=== PATIENT | female | born 1985 | race Caucasian/White ===

== ENCOUNTER 2019-04-03 00:56 | Emergency (ER) | payer OTHER ==
[~2019-04-03] VITALS: Ht 154.9 cm; Wt 59.0 kg
[2019-04-03 00:56] VITALS: BP 131/81
--- NOTE | 2019-04-03 00:56 | NUR ---
PT YSABEL ALS. TAKEN TO BED 8
--- NOTE | 2019-04-03 01:00 | NUR ---
PT HAS AN IV ON LEFT AC AND WAS GIVEN ADENOSINE AND 350 BOLUS PRIOR TO ER BY EMS. ERMD MADE AWARE OF STATUS.
--- NOTE | 2019-04-03 01:05 | NUR ---
Dr. Galaviz examining patient.
--- NOTE | 2019-04-03 01:23 | NUR ---
PT AMBULATING TO RESTROOM
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
--- NOTE | 2019-04-03 01:39 | NUR ---
EKG PERFORMED AT BEDSIDE
[2019-04-03 01:42] LABS: BASOPHILS % (AUTO) 0.2 % (0.0-2.0); EOSINOPHILS % (AUTO) 0.2 % (0.0-4.0); HEMATOCRIT 38.9 % (36-48); HEMOGLOBIN 13.2 g/dL (12.0-16.0); LYMPHOCYTES # (AUTO) 2.8 K/uL (2.5-16.5); LYMPHOCYTES % (AUTO) 21.2 % (20.5-51.1); MEAN CORPUSCULAR HEMOGLOBIN 32 pg (27-31); MEAN CORPUSCULAR HGB CONC 34 g/dL (33-37); MEAN CORPUSCULAR VOLUME 92.8 fL (80-94); MONOCYTES # (AUTO) 0.7 K/uL (0.8-1.0); MONOCYTES % (AUTO) 5.5 % (1.7-9.3); NEUTROPHILS # (AUTO) 9.5 K/uL (1.8-7.7); NEUTROPHILS % (AUTO) 72.9 % (42.2-75.2); PLATELET COUNT (AUTO) 451 K/uL (140-450); RED CELL DISTRIBUTION WIDTH 12.4 % (11.6-13.7)
[2019-04-03] MEDS: LORazepam 2 MG/ML VIAL IVP ONE (01:44)
[2019-04-03] MEDS: KETOROLAC 15 MG/ML VIAL IVP ONE (01:45)
[2019-04-03] MEDS: NACL 0.9% 1,000 ML IV ONE (01:47)
[2019-04-03 01:58] LABS: BARBITURATE, URINE NEGATIVE ng/ml (NEG <=200); BENZODIAZEPINE, URINE NEGATIVE ng/mL (NEG <=200); CANNABINOID, URINE NEGATIVE ng/mL (NEG <=50); COCAINE, URINE NEGATIVE ng/mL (NEG <=300); OPIATE, URINE NEGATIVE ng/mL (NEG <=2000); PHENCYCLIDINE SCREEN,URINE NEGATIVE ng/mL (NEG <=25)
[2019-04-03 02:01] LABS: ANION GAP 17.7 (8-16); CARBON DIOXIDE 24.3 mmol/L (21-32); CHLORIDE 100 mmol/L (98-107); SODIUM SERUM 139 mmol/L (136-145)
[2019-04-03 02:02] LABS: ASPARTATE AMINOTRANSFERASE 62 U/L (15-37); CREATININE 0.8 mg/dL (0.6-1.3); GFR ARICAN-AMERICAN 107 mL/min (>90); GLUCOSE 134 mg/dL (74-106); TOTAL BILIRUBIN 0.2 mg/dL (0.0-1.0); UREA NITROGEN, BLOOD 7 mg/dL (7-18)
[2019-04-03 02:03] LABS: ACETAMINOPHEN < 0.5 ug/ml (10-30); ALBUMIN 4.1 g/dL (3.4-5.0); SALICYLATE < 2.8 mg/dL (2.8-20.0)
[2019-04-03] MEDS: POTASSIUM CHLORIDE 10 MEQ TABER PO ONE (03:17)
[2019-04-03 03:44] VITALS: BP 146/105
--- NOTE | 2019-04-03 03:44 | NUR ---
Patient discharged with v/s stable. Written and verbal after care instructions given and explained. Patient verbalized understanding. Ambulatory with steady gait. All questions addressed prior to discharge. Advised to follow up with PMD.
== END 2019-04-03 03:44 | disposition home or self-care (01) ==
LOC: MED 00:56
DX: F10.129 Alcohol abuse with intoxication, unspecified (principal); R00.0 Tachycardia, unspecified; I10 Essential (primary) hypertension; F41.9 Anxiety disorder, unspecified; F17.200 Nicotine dependence, unspecified, uncomplicated; F15.90 Other stimulant use, unspecified, uncomplicated; Z98.890 Other specified postprocedural states; Z71.6 Tobacco abuse counseling; Y04.2XXA Assault by strike against or bumped into by another person, initial encounter; Y93.89 Activity, other specified; Y92.89 Other specified places as the place of occurrence of the external cause; Y99.8 Other external cause status
CPT/HCPCS: 36415; 80053; 80305; 84439; 84443; 85025; 93005; 96374; 96375; 99284; G0480; G0482; J1885; J2060; J7030

== ENCOUNTER 2019-04-06 18:48 | Emergency (ER) | payer OTHER ==
[~2019-04-06] VITALS: Ht 177.8 cm; Wt 59.9 kg
[2019-04-06 19:05] VITALS: BP 150/71
--- NOTE | 2019-04-06 19:10 | NUR ---
PT TO WAIT IN [facility]. [id number]. RR EVEN AND UNLABORED. BP 150/71, WILL CONTINE TO MONITOR. Addendum: 04/06/19 at 1911 by [email or web address] TACHY AT 132
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
[2019-04-06 20:49] LABS: BASOPHILS % (AUTO) 0.2 % (0.0-2.0); EOSINOPHILS % (AUTO) 0.1 % (0.0-4.0); HEMATOCRIT 40.3 % (36-48); HEMOGLOBIN 13.7 g/dL (12.0-16.0); LYMPHOCYTES # (AUTO) 3.3 K/uL (2.5-16.5); LYMPHOCYTES % (AUTO) 16.3 % (20.5-51.1); MEAN CORPUSCULAR HEMOGLOBIN 31 pg (27-31); MEAN CORPUSCULAR HGB CONC 34 g/dL (33-37); MEAN CORPUSCULAR VOLUME 91.4 fL (80-94); MONOCYTES # (AUTO) 0.7 K/uL (0.8-1.0); MONOCYTES % (AUTO) 3.6 % (1.7-9.3); NEUTROPHILS # (AUTO) 16.3 K/uL (1.8-7.7); NEUTROPHILS % (AUTO) 79.8 % (42.2-75.2); PLATELET COUNT (AUTO) 498 K/uL (140-450); RED BLOOD CELL COUNT(AUTO) 4.41 MIL/uL (4.20-5.40); RED CELL DISTRIBUTION WIDTH 12.8 % (11.6-13.7); WHITE BLOOD COUNT (AUTO) 20.4 K/uL (4.8-10.8)
[2019-04-06 21:15] LABS: POTASSIUM 3.6 mmol/L (3.5-5.1)
[2019-04-06 21:16] LABS: ANION GAP 17.8 (8-16); CARBON DIOXIDE 23.8 mmol/L (21-32); TOTAL BILIRUBIN 0.7 mg/dL (0.0-1.0)
[2019-04-06 21:17] LABS: ALBUMIN 4.5 g/dL (3.4-5.0)
== END 2019-04-06 20:00 | disposition left against medical advice (07) ==
LOC: MED 18:48
DX: R06.02 Shortness of breath (principal); R42 Dizziness and giddiness; Z53.21 Procedure and treatment not carried out due to patient leaving prior to being seen by health care provider
CPT/HCPCS: 36415; 80053; 84484; 84702; 85025

== ENCOUNTER 2019-04-06 20:04 | Emergency (ER) | payer OTHER ==
[~2019-04-06] VITALS: Ht 154.9 cm; Wt 56.7 kg
[2019-04-06 20:08] VITALS: BP 134/108
--- NOTE | 2019-04-06 20:09 | NUR ---
PT ABULATED TO LOBBY
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
--- NOTE | 2019-04-06 21:00 | NUR ---
YSABEL FROM [employer] C/O ANXIETY. STATED "I FELT ANXIOUS, LITTLE SOB AND ABOUT TO FAINT". PT ALSO C/O DIZZINESS/HEADACHE 5/10, NO BLURRY VISION, -N/V, C/O FEELING NUMBNESS/TINGLING TO EXTREMETIES, PT STATES SHE WALKED IN EARLIER TODAY FOR SIMILAR S/SX BUT LWBS. PT AAOX4, GCS 15, RR EVEN UNLABORED, ED MD DR. RENNER MADE AWARE, WILL CONTINUE TO MONITOR CLOSELY, BED LOCKED IN LOWEST POSITION, SIDERAIL UPX1. PMH-- ANXIETY, DEPRESSION, CHF POST (RESOLVED) RX-- FLUOXETINE 50 MG DAILY
--- NOTE | 2019-04-06 21:08 | NUR ---
AMBULATED TO ER BED 8
[2019-04-06] MEDS ORDERED: NACL 0.9% 1,000 ML IV ONE (21:20)
[2019-04-06 22:43] LABS: APPEARANCE,URINE CLEAR (CLEAR); BILIRUBIN,URINE NEGATIVE (NEGATIVE); BLOOD, URINE NEGATIVE (NEGATIVE); COLOR,URINE YELLOW (YELLOW); LEUKOCYTE ESTERASE ,URINE NEGATIVE (NEGATIVE); NITRITE, URINE NEGATIVE (NEGATIVE); UGLUCOSE NEGATIVE (NEGATIVE)
[2019-04-06 23:35] VITALS: BP 156/78
--- NOTE | 2019-04-06 23:35 | NUR ---
Patient discharged with v/s stable. Written and verbal after care instructions given and explained. Patient alert, oriented and verbalized understanding of instructions. Ambulatory with steady gait. All questions addressed prior to discharge. ID band removed. Patient advised to follow up with PMD. Rx of METOPROLOL SUCCINATE 25MG ER given. Patient educated on indication of medication including possible reaction and side effects. Opportunity to ask questions provided and answered.
== END 2019-04-06 23:35 | disposition home or self-care (01) ==
LOC: MED 20:04
DX: D72.829 Elevated white blood cell count, unspecified (principal); R00.0 Tachycardia, unspecified; Z79.899 Other long term (current) drug therapy; F32.9 Major depressive disorder, single episode, unspecified; Z98.51 Tubal ligation status; I10 Essential (primary) hypertension
CPT/HCPCS: 71045; 81003; 81025; 93005; 96360; 99284; J7030; Q0092

== ENCOUNTER 2020-07-06 18:01 | Emergency (ER) | payer OTHER ==
[~2020-07-06] VITALS: Ht 154.9 cm; Wt 56.7 kg
--- NOTE | 2020-07-06 18:05 | NUR ---
PT AMBULATED TO BED 4.
[2020-07-06 18:14] VITALS: BP 126/86
--- NOTE | 2020-07-06 18:15 | NUR ---
35 Y/O FEMALE COMES FROM HOME PRESENTS TO ED C/C DIZZYNESS, AND ANXIETY SINCE 2 HRS AGO. PT STATES SHE IS COMPLIANT WITH ANXIETY AND DEPRESSION MEDS. DENIES SOB, N/V/D. DENIES SI/HI. PMHX: ANXIETY, DEPRESSION, HTN NKDA
[2020-07-06] MEDS ORDERED: LORazepam 1 MG TAB PO ONE (18:45)
[2020-07-06 19:10] VITALS: BP 126/86
== END 2020-07-06 19:10 | disposition home or self-care (01) ==
LOC: MED 18:01
DX: F41.0 Panic disorder [episodic paroxysmal anxiety] (principal)
CPT/HCPCS: 93005; 99283

== ENCOUNTER 2020-07-09 07:15 | Emergency (ER) | payer OTHER ==
[~2020-07-09] VITALS: Ht 154.9 cm; Wt 52.2 kg
[2020-07-09 07:20] VITALS: BP 140/94
--- NOTE | 2020-07-09 07:20 | NUR ---
Patient ambulated with steady gait to bed 4.
[2020-07-09] MEDS ORDERED: FAMOTIDINE 20 MG TAB PO ONE (07:35)
[2020-07-09] MEDS ORDERED: ONDANSETRON 4 MG ODT PO ONE (07:35)
--- NOTE | 2020-07-09 08:02 | NUR ---
35YO F BIB SELF C/O NAUSEA X 2 DAYS AND MID ABDOMINAL PAIN SINCE THIS AM, PAIN SCALE 3/10. PT ALSO REPORTS 1 EPISODE OF LOOSE WATERY STOOLS THIS AM. PT ADMITS TO ALCOHOL INTAKE FOR THE PAST DAYS, 3 CANS OF BEER THIS AM. IN ER, VSS. ABDOMEN SOFT, NONTENDER.NO SIGNS OF DEHYDRATION. PT CHANGED TO PT GOWN. RESTING IN BED COMFORTABLY. DR SKINNER SAW PT AT BEDSIDE. PMH: HTN, ANXIETY, DEPRESSION NKA
[2020-07-09 08:12] LABS: BASOPHILS % (AUTO) 0.1 % (0.0-2.0); EOSINOPHILS # (AUTO) 0.1 K/uL (0-0.4); HEMATOCRIT 39.7 % (36-48); HEMOGLOBIN 13.3 g/dL (12.0-16.0); LYMPHOCYTES # (AUTO) 3.1 K/uL (2.5-16.5); LYMPHOCYTES % (AUTO) 39.5 % (20.5-51.1); MEAN CORPUSCULAR HEMOGLOBIN 30 pg (27-31); MEAN CORPUSCULAR HGB CONC 34 g/dL (33-37); MEAN CORPUSCULAR VOLUME 89.9 fL (80-94); MONOCYTES # (AUTO) 0.6 K/uL (0.8-1.0); MONOCYTES % (AUTO) 8.1 % (1.7-9.3); NEUTROPHILS # (AUTO) 4.1 K/uL (1.8-7.7); NEUTROPHILS % (AUTO) 51.3 % (42.2-75.2); PLATELET COUNT (AUTO) 369 K/uL (140-450); RED BLOOD CELL COUNT(AUTO) 4.41 MIL/uL (4.20-5.40); WHITE BLOOD COUNT (AUTO) 7.9 K/uL (4.8-10.8)
[2020-07-09] MEDS ORDERED: LORazepam 1 MG TAB PO ONE (08:15)
[2020-07-09 08:25] LABS: BILIRUBIN,URINE NEGATIVE (NEGATIVE); BLOOD, URINE NEGATIVE (NEGATIVE); COLOR,URINE YELLOW (YELLOW); LEUKOCYTE ESTERASE ,URINE 1+ (NEGATIVE); NITRITE, URINE NEGATIVE (NEGATIVE); PH,URINE 6.5 (5.0-9.0); UGLUCOSE NEGATIVE (NEGATIVE)
[2020-07-09 08:35] LABS: APPEARANCE,URINE SLIGHTLY HAZY (CLEAR)
[2020-07-09 08:36] LABS: RBC,URINE NONE SEEN /HPF (0-5)
[2020-07-09 08:37] LABS: ALBUMIN 4.3 g/dL (3.4-5.0); ANION GAP 13.6 (8-16); CARBON DIOXIDE 29.2 mmol/L (21-32); CREATININE 0.7 mg/dL (0.6-1.3); POTASSIUM 3.8 mmol/L (3.5-5.1); TOTAL BILIRUBIN 0.3 mg/dL (0.0-1.0)
[2020-07-09 08:43] LABS: BARBITURATE, URINE NEGATIVE ng/ml (NEG <=200); BENZODIAZEPINE, URINE POSITIVE ng/mL (NEG <=200); CANNABINOID, URINE NEGATIVE ng/mL (NEG <=50); COCAINE, URINE NEGATIVE ng/mL (NEG <=300); OPIATE, URINE NEGATIVE ng/mL (NEG <=2000); PHENCYCLIDINE SCREEN,URINE NEGATIVE ng/mL (NEG <=25)
[2020-07-09 09:52] VITALS: BP 140/94
--- NOTE | 2020-07-09 09:52 | NUR ---
Patient discharged with v/s stable. Written and verbal after care instructions given and explained. Patient alert, oriented and verbalized understanding of instructions. Ambulatory with steady gait. All questions addressed prior to discharge. ID band removed. Patient advised to follow up with PMD. Rx of BACTRIN, ZOFRAN, PEPCID given. Patient educated on indication of medication including possible reaction and side effects. Opportunity to ask questions provided and answered.
--- NOTE | 2020-07-11 16:56 | NUR ---
Pt discharged with appropriate medication for diagnosis.
== END 2020-07-09 09:52 | disposition home or self-care (01) ==
LOC: MED 07:15
DX: K29.20 Alcoholic gastritis without bleeding (principal); N39.0 Urinary tract infection, site not specified; F41.9 Anxiety disorder, unspecified; I51.89 Other ill-defined heart diseases; F17.200 Nicotine dependence, unspecified, uncomplicated; I10 Essential (primary) hypertension
CPT/HCPCS: 36415; 80053; 80305; 81001; 81025; 83690; 85025; 87086; 99284; Q0162

== ENCOUNTER 2020-07-12 03:01 | Emergency (ER) | payer OTHER ==
[~2020-07-12] VITALS: Ht 154.9 cm; Wt 54.4 kg
[2020-07-12 03:05] VITALS: BP 128/83
--- NOTE | 2020-07-12 03:10 | NUR ---
PT AMBULATED TO BED 07 WITH STEADY GAIT.
--- NOTE | 2020-07-12 03:29 | NUR ---
PT C/O SOB, L SIDED CHEST PAIN, 03/24. DESCRIBES PAIN NUMB, SHARP, TINGLING. PAIN IS NONRADIATING, STARTED 1 DAY AGO. PT STATES SHE HAD CHF FOR 2 YEARS AND IT WENT. SHE BELIEVES IT HAS COME BACK. ABERILE, DENIES COUGH. LUNGS CLEAR, O2 SAT 100% ON ROOM AIR. RESPIRATIONS REGULAR EVEN AND UNLABORED. PT IN BED IN GOWN, BED IN LOWEST POSITION AND SIDERAIL UP X 1. NKA HX - ANXIETY, HAD CHF BUT IS CURED
--- NOTE | 2020-07-12 03:33 | NUR ---
PT REQUESTING A MALE NURSE. WILL NOT ALLOW ME TO DO AN EKG. KIARA YOUNG WILL BE TAKING OVER WITH CARE AT THIS TIME.
--- NOTE | 2020-07-12 04:00 | NUR ---
RAD AT BEDSIDE
--- NOTE | 2020-07-12 04:12 | NUR ---
LABS DRAWN BY STRATEGIC ACCOUNTS MANAGER. COVID SWAB DONE AND HANDED TO STRATEGIC ACCOUNTS MANAGER
[2020-07-12 04:21] LABS: HEMATOCRIT 36.5 % (36-48); HEMOGLOBIN 12.4 g/dL (12.0-16.0); MEAN CORPUSCULAR HEMOGLOBIN 31 pg (27-31); MEAN CORPUSCULAR HGB CONC 34 g/dL (33-37); PLATELET COUNT (AUTO) 327 K/uL (140-450); RED BLOOD CELL COUNT(AUTO) 4.06 MIL/uL (4.20-5.40); WHITE BLOOD COUNT (AUTO) 11.8 K/uL (4.8-10.8)
[2020-07-12 04:40] LABS: ALBUMIN 3.9 g/dL (3.4-5.0); ANION GAP 16.6 (8-16); CARBON DIOXIDE 25.8 mmol/L (21-32); CREATININE 0.7 mg/dL (0.6-1.3); POTASSIUM 3.4 mmol/L (3.5-5.1); TOTAL BILIRUBIN 0.4 mg/dL (0.0-1.0)
[2020-07-12 05:36] LABS: EOSINOPHILS % (MANUAL) 1 % (0-4); LYMPHOCYTES % (MANUAL) 25 % (20-46); MONOCYTES % (MANUAL) 7 % (5-12)
== END 2020-07-12 05:00 | disposition home or self-care (01) ==
LOC: MED 03:01
DX: R06.02 Shortness of breath (principal)
CPT/HCPCS: 36415; 71045; 80053; 83880; 84484; 85025; 93005; 99285

== ENCOUNTER 2020-07-19 10:12 | Emergency (ER) | payer OTHER ==
[~2020-07-19] VITALS: Ht 154.9 cm; Wt 61.7 kg
[2020-07-19 10:14] VITALS: BP 136/99
--- NOTE | 2020-07-19 10:20 | NUR ---
PT TAKEN TO BED 12.
--- NOTE | 2020-07-19 10:28 | NUR ---
35/F presents to ED with complaints of anxiety, panic attack and palpitations starting this morning. Pt states she takes lorazepam 1mg for anxiety. Denies taking any medication today. Pt is calm, cooperative, relaxed. Pt lying on side in bed 12 using sweater as pillow. Appears comfortable.
[2020-07-19] MEDS ORDERED: LORazepam 1 MG TAB PO ONE (11:10)
--- NOTE | 2020-07-19 11:26 | NUR ---
Patient discharged with v/s stable. Written and verbal after care instructions given and explained. Patient alert, oriented and verbalized understanding of instructions. Ambulatory with steady gait. All questions addressed prior to discharge. ID band removed. Patient advised to follow up with PMD. Rx of Prilosec 40mg and Atarax 25mg given. Patient educated on indication of medication including possible reaction and side effects. Opportunity to ask questions provided and answered.
== END 2020-07-19 11:26 | disposition home or self-care (01) ==
LOC: MED 10:12
DX: F41.9 Anxiety disorder, unspecified (principal); F17.210 Nicotine dependence, cigarettes, uncomplicated; I10 Essential (primary) hypertension; I51.89 Other ill-defined heart diseases
CPT/HCPCS: 99283

== ENCOUNTER 2020-08-03 22:14 | Emergency (ER) | payer OTHER ==
[~2020-08-03] VITALS: Ht 154.9 cm; Wt 49.9 kg
[2020-08-03 22:45] VITALS: BP 127/80
--- NOTE | 2020-08-03 22:48 | NUR ---
TO LOBBY AMBULATORY
--- NOTE | 2020-08-03 23:14 | NUR ---
SEEN AND EXAMINED BY ERMD WITH ORDERS.
[2020-08-03] MEDS ORDERED: LORazepam 0.5 MG TAB PO ONE (23:15)
--- NOTE | 2020-08-03 23:30 | NUR ---
PATIENT ELOPED FROM FACILITY. DISCHARGE INSTRUCTIONS NOT GIVEN TO PATIENT. DR. PEPE NOTIFIED.
--- NOTE | 2020-08-03 23:30 | NUR ---
PATIENT CALLED TO BE ON BED , NO RESPONSE
--- NOTE | 2020-08-03 23:30 | NUR ---
Ga martin in [facility] - [facility]7 [facility] LEFT WITHOUT BEING SEEN BY DR. PEPE. NO FURTHER CARE PROVIDED FOR PATIENT.
--- NOTE | 2020-08-03 23:35 | NUR ---
CALLED FOR THE SECOND TIME, NO RESPONSE
--- NOTE | 2020-08-03 23:40 | NUR ---
CALLED FOR THE THIRD TIME , NO RESPONSE
== END 2020-08-03 23:30 | disposition left against medical advice (07) ==
LOC: MED 22:14
DX: F41.9 Anxiety disorder, unspecified (principal); I11.0 Hypertensive heart disease with heart failure; I50.9 Heart failure, unspecified; Z98.51 Tubal ligation status
CPT/HCPCS: 99281

== ENCOUNTER 2020-08-15 17:36 | Emergency (ER) | payer OTHER ==
[~2020-08-15] VITALS: Ht 154.9 cm; Wt 52.2 kg
[2020-08-15 17:39] VITALS: BP 154/106
--- NOTE | 2020-08-15 17:42 | NUR ---
PT W/C ASSISTED FROM AMBULANCE TO ER LOBBY TO WAIT FOR MSE AND AVAILABLE BED.
[2020-08-15] MEDS ORDERED: ONDANSETRON 4 MG ODT PO ONE (18:10)
[2020-08-15] MEDS ORDERED: LORazepam 1 MG TAB PO ONE (18:10)
[2020-08-15 18:45] VITALS: BP 154/106
--- NOTE | 2020-08-15 18:45 | NUR ---
Patient discharged with v/s stable. Written and verbal after care instructions given and explained. Patient alert, oriented and verbalized understanding of instructions. Ambulatory with steady gait. All questions addressed prior to discharge. ID band removed. Patient advised to follow up with PMD. Rx of Propanolol 20mg and Ativan 0.5mg given. Patient educated on indication of medication including possible reaction and side effects. Opportunity to ask questions provided and answered.
== END 2020-08-15 18:45 | disposition home or self-care (01) ==
LOC: MED 17:36
DX: F10.239 Alcohol dependence with withdrawal, unspecified (principal); I11.0 Hypertensive heart disease with heart failure; Y90.9 Presence of alcohol in blood, level not specified
CPT/HCPCS: 99283; Q0162

== ENCOUNTER 2020-08-24 09:59 | Emergency (ER) | payer OTHER ==
[~2020-08-24] VITALS: Ht 154.9 cm; Wt 68.0 kg
[2020-08-24 10:47] VITALS: BP 154/96
--- NOTE | 2020-08-24 10:47 | NUR ---
TO TENT AMBULATORY
[2020-08-24 11:22] VITALS: BP 154/96
--- NOTE | 2020-08-24 11:23 | NUR ---
Patient discharged with v/s stable. Written and verbal after care instructions ABOUT ANXIETY AND PANIC ATTACKS given and explained. Patient verbalized understanding. Ambulatory with steady gait. All questions addressed prior to discharge. Advised to follow up with PMD.
== END 2020-08-24 11:22 | disposition home or self-care (01) ==
LOC: MED 09:59
DX: F41.9 Anxiety disorder, unspecified (principal); I11.0 Hypertensive heart disease with heart failure; I50.9 Heart failure, unspecified
CPT/HCPCS: 99281

== ENCOUNTER 2020-08-26 18:03 | Emergency (ER) | payer OTHER ==
[~2020-08-26] VITALS: Ht 160 cm; Wt 54.4 kg
--- NOTE | 2020-08-26 18:08 | NUR ---
Patient BIBA BLS, transferred to bed 14. RN evaluating the patient at bedside.
--- NOTE | 2020-08-26 18:10 | NUR ---
35 y/o female biba bls from street c/o left sided tongue discomfort and white patch to tongue x 2 days. Pt states she had cut to tongue and pain got worse. No bleeding noted. states 3/10 pain. Able to speak full, clear sentences. VSS
--- NOTE | 2020-08-26 18:11 | NUR ---
ROSIBEL Rogel is evaluating the patient at bedside.
[2020-08-26 18:13] VITALS: BP 114/83
[2020-08-26 18:37] VITALS: BP 114/83
--- NOTE | 2020-08-26 18:38 | NUR ---
Patient discharged with v/s stable. Written and verbal after care instructions given and explained. Patient alert, oriented and verbalized understanding of instructions. Ambulatory with steady gait. All questions addressed prior to discharge. ID band removed. Patient advised to follow up with PMD. Rx of NYSTATIN given. Patient educated on indication of medication including possible reaction and side effects. Opportunity to ask questions provided and answered.
== END 2020-08-26 18:38 | disposition home or self-care (01) ==
LOC: MED 18:03
DX: K14.0 Glossitis (principal); I11.0 Hypertensive heart disease with heart failure; I50.9 Heart failure, unspecified; K21.9 Gastro-esophageal reflux disease without esophagitis; F17.210 Nicotine dependence, cigarettes, uncomplicated
CPT/HCPCS: 99283

== ENCOUNTER 2020-09-01 20:40 | Emergency (ER) | payer OTHER ==
[~2020-09-01] VITALS: Ht 154.9 cm; Wt 52.2 kg
[2020-09-01 20:40] VITALS: BP 150/90
--- NOTE | 2020-09-01 20:40 | NUR ---
PT 35 Y/O FEMALE BIBA FROM HOME FOR C/O ANXIETY X 1 WEEK. PER PATIENT ANXIETY INCREASED AFTER LOOSING MEDICATION, " I HAVEN'T BEEN ABLE TO RELAX WITHOUT MY MEDICATION." PER PT RX IS USUALLY ATIVAN 1MG PO QD. PATIENT ALSO HAS 5/10 TOUNGE PAIN X 1 WEEK. PATIENT NOTED WITH SMALL WHITE SORE ON L SIDE OF TOUNGE. NO PUS OR DRAINAGE NOTED. ERMD MADE AWARE. MEDHX: GERD, AXNIETY, DEPRESSION, HTN. ALLERGIES: NKA
--- NOTE | 2020-09-01 20:42 | NUR ---
TRACI EPSTEIN. TAKEN TO CHAIR C
--- NOTE | 2020-09-01 20:43 | NUR ---
Dr. Sandoval examining patient.
[2020-09-01] MEDS ORDERED: LORazepam 2 MG/ML VIAL IM ONE (20:45)
--- NOTE | 2020-09-01 20:52 | NUR ---
PATIENT AMBUALTED TO RESTROOM TO PROVIDE UA SAMPLE.
--- NOTE | 2020-09-01 21:04 | NUR ---
UA SAMPLE TAKEN TO LAB.
[2020-09-01] MEDS ORDERED: ACETAMINOPHEN 325 MG TAB PO ONE (21:05)
[2020-09-01 21:24] LABS: BARBITURATE, URINE NEGATIVE ng/ml (NEG <=200); BENZODIAZEPINE, URINE NEGATIVE ng/mL (NEG <=200); CANNABINOID, URINE POSITIVE ng/mL (NEG <=50); COCAINE, URINE NEGATIVE ng/mL (NEG <=300); OPIATE, URINE NEGATIVE ng/mL (NEG <=2000); PHENCYCLIDINE SCREEN,URINE NEGATIVE ng/mL (NEG <=25)
--- NOTE | 2020-09-01 21:39 | NUR ---
Patient is currently ambulatory with steady gait, able to walk unassisted. Alert and oriented. Is not driving self for discharge out of facility.
[2020-09-01 21:40] VITALS: BP 148/86
== END 2020-09-01 21:40 | disposition home or self-care (01) ==
LOC: MED 20:40
DX: F41.9 Anxiety disorder, unspecified (principal); F15.10 Other stimulant abuse, uncomplicated; I11.0 Hypertensive heart disease with heart failure; F17.210 Nicotine dependence, cigarettes, uncomplicated; Z71.6 Tobacco abuse counseling
CPT/HCPCS: 80305; 81025; 96372; 99283; J2060

== ENCOUNTER 2020-09-10 23:45 | Emergency (ER) | payer OTHER ==
[~2020-09-10] VITALS: Ht 154.9 cm; Wt 52.2 kg
[2020-09-10 23:48] VITALS: BP 143/90
[2020-09-11 00:05] VITALS: BP 143/90
[2020-09-11] MEDS ORDERED: LORazepam 2 MG/ML VIAL IVP ONE (00:10)
[2020-09-11] MEDS ORDERED: NACL 0.9% 1,000 ML IV ONE (00:10)
== END 2020-09-11 02:15 | disposition home or self-care (01) ==
LOC: MED 23:45
DX: F41.0 Panic disorder [episodic paroxysmal anxiety] (principal); F10.20 Alcohol dependence, uncomplicated; K21.9 Gastro-esophageal reflux disease without esophagitis; I10 Essential (primary) hypertension; F41.9 Anxiety disorder, unspecified
CPT/HCPCS: 96361; 96374; 99283; J2060; J7030

== ENCOUNTER 2020-09-14 01:42 | Emergency (ER) | payer OTHER ==
[~2020-09-14] VITALS: Ht 154.9 cm; Wt 52.2 kg
[2020-09-14 01:46] VITALS: BP 124/75
[2020-09-14] MEDS ORDERED: LORazepam 2 MG/ML VIAL IM ONE (02:15)
[2020-09-14 04:30] VITALS: BP 124/75
== END 2020-09-14 04:30 | disposition home or self-care (01) ==
LOC: MED 01:42
DX: F41.9 Anxiety disorder, unspecified (principal); R06.4 Hyperventilation; F32.9 Major depressive disorder, single episode, unspecified; K21.9 Gastro-esophageal reflux disease without esophagitis; I10 Essential (primary) hypertension; F17.210 Nicotine dependence, cigarettes, uncomplicated; F10.129 Alcohol abuse with intoxication, unspecified; Y90.9 Presence of alcohol in blood, level not specified
CPT/HCPCS: 96372; 99283; J2060

== ENCOUNTER 2020-09-15 23:49 | Emergency (ER) | payer OTHER ==
[~2020-09-15] VITALS: Ht 154.9 cm; Wt 52.2 kg
[2020-09-15 23:50] VITALS: BP 159/99
--- NOTE | 2020-09-15 23:51 | NUR ---
PT TAKEN TO LOBBY TO A/W BED.
--- NOTE | 2020-09-16 02:20 | NUR ---
PT AMBULATED TO BED #12
--- NOTE | 2020-09-16 02:28 | NUR ---
KWABENA FLOWERS AT BEDSIDE FOR MEDICAL EVALUATION.
--- NOTE | 2020-09-16 02:35 | NUR ---
35 Y/O FEMALE PRESENTED TO ED C/O LOWER ABD PAIN S/P ALCOHOL CONSUMPTION. PT ABD FLAT , SOFT AND MILD TENDERNESS UPON PALPATION. PT DESCRIBES PAIN SHARP 8/10 PAIN , NONRADIATING THAT IS CHRONIC BUT WORSENS WHEN SHE CONSUMES ALCOHOL. ACTIVE BOWEL SOUNDS IN ALL QUADRANTS. PT SECONDARY C/O ANXIETY S/P ALCOHOL CONSUMPTION. PT DENIES CHEST PAIN , PT + W/ NAUSEA AND VOMITTING. PT STATES SHE DRANK A WHOLE BOTTLE OF ALCOHOL BUT DOES NOT REMEMBER WHAT TYPE. PT DENIES DRUG USE. PT RESTING IN BED, LOCKED AND IN LOWEST POSITION, HOB ELEVATED, SIDE RAIL X1. PT PLACED ON PULSE OX AND BP CUFF. VSS. NO ACUTE DISTRESS NOTED AT THIS TIME. PMH: HTN, GERD, ANXIETY NKA
--- NOTE | 2020-09-16 02:50 | NUR ---
Blood labs collected and handed to Clif Mendenhall.
[2020-09-16 03:00] LABS: BASOPHILS % (AUTO) 0.4 % (0.0-2.0); EOSINOPHILS # (AUTO) 0.1 K/uL (0-0.4); EOSINOPHILS % (AUTO) 0.8 % (0.0-4.0); HEMATOCRIT 38.1 % (36-48); HEMOGLOBIN 12.4 g/dL (12.0-16.0); LYMPHOCYTES # (AUTO) 3.7 K/uL (2.5-16.5); LYMPHOCYTES % (AUTO) 32.2 % (20.5-51.1); MEAN CORPUSCULAR HEMOGLOBIN 30 pg (27-31); MEAN CORPUSCULAR HGB CONC 33 g/dL (33-37); MEAN CORPUSCULAR VOLUME 91.8 fL (80-94); MONOCYTES # (AUTO) 0.6 K/uL (0.8-1.0); MONOCYTES % (AUTO) 5.3 % (1.7-9.3); NEUTROPHILS % (AUTO) 61.3 % (42.2-75.2); PLATELET COUNT (AUTO) 430 K/uL (140-450); RED BLOOD CELL COUNT(AUTO) 4.15 MIL/uL (4.20-5.40); RED CELL DISTRIBUTION WIDTH 14.7 % (11.6-13.7); WHITE BLOOD COUNT (AUTO) 11.5 K/uL (4.8-10.8)
[2020-09-16] MEDS: ONDANSETRON 4 MG/2 ML VIAL IVP ONE (03:01)
[2020-09-16] MEDS: PANTOPRAZOLE 40 MG INJ VIAL IVP ONE (03:02)
[2020-09-16] MEDS: NACL 0.9% 1,000 ML IV ONE (03:02)
--- NOTE | 2020-09-16 03:20 | NUR ---
PT FOUND RESTING ON RIGHT SIDE IN BED. VISIBLE EQUAL RISE AND FALL UPON RESPIRATIONS. NO DISTRESS NOTED. BED LOCKED IN LOWEST POSITION WITH 1 SIDE RAIL UP. WILL CONTINUE TO MONITOR.
--- NOTE | 2020-09-16 03:27 | NUR ---
Pt ambulated to restroom w/ steady gait.
[2020-09-16 03:32] LABS: ALBUMIN 3.9 g/dL (3.4-5.0); ANION GAP 13.8 (8-16); CARBON DIOXIDE 27.3 mmol/L (21-32); CREATININE 0.6 mg/dL (0.6-1.3); POTASSIUM 4.1 mmol/L (3.5-5.1); TOTAL BILIRUBIN 0.2 mg/dL (0.0-1.0)
[2020-09-16] MEDS: LORazepam 2 MG/ML VIAL IVP ONE (04:03)
--- NOTE | 2020-09-16 05:00 | NUR ---
PT WAS PROVIDED Francisco EMERSON.
[2020-09-16 05:14] VITALS: BP 117/70
--- NOTE | 2020-09-16 05:14 | NUR ---
Patient discharged with v/s stable. Written and verbal after care instructions given and explained. Patient alert, oriented and verbalized understanding of instructions. Ambulatory with steady gait. All questions addressed prior to discharge. ID band removed. Patient advised to follow up with PMD. Rx of PROTONIX AND ZOFRAN given. Patient educated on indication of medication including possible reaction and side effects. Opportunity to ask questions provided and answered.
--- NOTE | 2020-09-16 05:14 | NUR ---
IV removed, catheter intact and site benign. Applied folded 4x4 gauze and tape to stop bleeding.
== END 2020-09-16 05:14 | disposition home or self-care (01) ==
LOC: MED 23:49
DX: K29.20 Alcoholic gastritis without bleeding (principal); K21.9 Gastro-esophageal reflux disease without esophagitis; I10 Essential (primary) hypertension
CPT/HCPCS: 36415; 80053; 83690; 85025; 96361; 96374; 96375; 99284; C9113; J2060; J2405; J7030

== ENCOUNTER 2020-10-02 04:30 | Emergency (ER) | payer OTHER ==
[~2020-10-02] VITALS: Ht 154.9 cm; Wt 52.2 kg
[2020-10-02 04:30] VITALS: BP 140/72
--- NOTE | 2020-10-02 04:30 | NUR ---
YSABEL EPSTEIN TAKEN TO BED #8
--- NOTE | 2020-10-02 04:40 | NUR ---
Pt BIBA, c/o anxiety and SOB, states "I can't breathe, there is a brick on my chest!" No s/s SOB, O2 99% on RA, other vitals stable. Pt A/Ox4 with flight of ideas. States she ran out of Ativan 1.5 wk ago. Admits to using cocaine and vodka earlier today. Hx of HTN and anxiety. Ambulatory with steady gait.
[2020-10-02] MEDS ORDERED: KETOROLAC 60 MG/2 ML VIAL IM ONE (04:45)
[2020-10-02] MEDS ORDERED: LORazepam 1 MG TAB PO ONE (05:00)
[2020-10-02 05:05] VITALS: BP 140/72
== END 2020-10-02 05:05 | disposition home or self-care (01) ==
LOC: MED 04:30
DX: F41.9 Anxiety disorder, unspecified (principal); F10.129 Alcohol abuse with intoxication, unspecified; K21.9 Gastro-esophageal reflux disease without esophagitis; I10 Essential (primary) hypertension; F17.210 Nicotine dependence, cigarettes, uncomplicated; F15.10 Other stimulant abuse, uncomplicated; Y90.9 Presence of alcohol in blood, level not specified
CPT/HCPCS: 96372; 99283; J1885

== ENCOUNTER 2020-10-06 18:25 | Emergency (ER) | payer OTHER ==
[~2020-10-06] VITALS: Ht 167.6 cm; Wt 61.7 kg
[2020-10-06 18:28] VITALS: BP 154/103
[2020-10-06] MEDS ORDERED: LORazepam 1 MG TAB PO ONE (20:20)
[2020-10-06 20:35] VITALS: BP 142/91
--- NOTE | 2020-10-06 20:36 | NUR ---
Patient discharged with v/s stable. Written and verbal after care instructions given and explained. Patient alert, oriented and verbalized understanding of instructions. Ambulatory with steady gait. All questions addressed prior to discharge. ID band removed. Patient advised to follow up with PMD. Rx of OMEPRAZOLE given. Patient educated on indication of medication including possible reaction and side effects. Opportunity to ask questions provided and answered.
== END 2020-10-06 20:36 | disposition home or self-care (01) ==
LOC: MED 18:25
DX: F13.239 Sedative, hypnotic or anxiolytic dependence with withdrawal, unspecified (principal); F41.9 Anxiety disorder, unspecified; I11.9 Hypertensive heart disease without heart failure; K21.9 Gastro-esophageal reflux disease without esophagitis; F15.10 Other stimulant abuse, uncomplicated
CPT/HCPCS: 99283

== ENCOUNTER 2020-10-08 17:19 | Emergency (ER) | payer OTHER ==
[~2020-10-08] VITALS: Ht 154.9 cm; Wt 52.2 kg
[2020-10-08 17:26] VITALS: BP 138/106
--- NOTE | 2020-10-08 17:56 | NUR ---
35F PMH of ETOH, polysubstance abuse, anxiety and personality disorder/bipolar BIBA for anxiety attack. Per EMS crew she was tachycardic and tachypnic in the field. Compliants of bilateral cramping in hands. Pt reports smoking and snorting meth last night along with her daily pint of vodka. States her last drink was last night. endorses 10/10 cramping pain in her hands that radiates to her arms as tingly and numbness. Denies changes in vision and hearing. Denies fever chills SOB CP abdominal urinary bosel issues at this time. A&O x3, tachycardic, speaks in full clear sentences, follows commands. No AMU, respirations tachypnic e/u. CAI. arms and hands are tremulous, no tongue fasciculations, tongue midline, no facial droop, smile is even able to raise eyebrows. even strength/sensation all four extremeties. no neuro deficits noted. MD bedside Pending orders
[2020-10-08] MEDS ORDERED: LORazepam 2 MG/ML VIAL IVP ONE (18:05)
[2020-10-08] MEDS ORDERED: NACL 0.9% 1,000 ML IV ONE ×2 (18:05)
[2020-10-08 18:34] LABS: BASOPHILS % (AUTO) 0.5 % (0.0-2.0); EOSINOPHILS # (AUTO) 0.1 K/uL (0-0.4); HEMATOCRIT 37.6 % (36-48); HEMOGLOBIN 12.4 g/dL (12.0-16.0); LYMPHOCYTES # (AUTO) 1.1 K/uL (2.5-16.5); LYMPHOCYTES % (AUTO) 20.4 % (20.5-51.1); MEAN CORPUSCULAR HEMOGLOBIN 29 pg (27-31); MEAN CORPUSCULAR HGB CONC 33 g/dL (33-37); MEAN CORPUSCULAR VOLUME 89.3 fL (80-94); MONOCYTES # (AUTO) 0.4 K/uL (0.8-1.0); MONOCYTES % (AUTO) 6.6 % (1.7-9.3); NEUTROPHILS # (AUTO) 3.9 K/uL (1.8-7.7); NEUTROPHILS % (AUTO) 71.5 % (42.2-75.2); PLATELET COUNT (AUTO) 362 K/uL (140-450); RED BLOOD CELL COUNT(AUTO) 4.21 MIL/uL (4.20-5.40); RED CELL DISTRIBUTION WIDTH 14.5 % (11.6-13.7); WHITE BLOOD COUNT (AUTO) 5.5 K/uL (4.8-10.8)
[2020-10-08 18:52] LABS: ALBUMIN 4.2 g/dL (3.4-5.0); ASPARTATE AMINOTRANSFERASE 129 U/L (15-37); CARBON DIOXIDE 22.3 mmol/L (21-32); CHLORIDE 99 mmol/L (98-107); CREATININE 0.9 mg/dL (0.6-1.3); GFR ARICAN-AMERICAN 92 mL/min (>90); GLUCOSE 101 mg/dL (74-106); POTASSIUM 3.3 mmol/L (3.5-5.1); SODIUM SERUM 136 mmol/L (136-145); TOTAL BILIRUBIN 0.7 mg/dL (0.0-1.0); UREA NITROGEN, BLOOD 5 mg/dL (7-18)
--- NOTE | 2020-10-08 19:13 | NUR ---
Handoff given to HANNAH Ortega
[2020-10-08] MEDS ORDERED: LORazepam 2 MG/ML VIAL ONE (19:29)
[2020-10-08] MEDS ORDERED: POTASSIUM CHLORIDE 10 MEQ TABER PO ONE ×2 (20:35→20:51)
[2020-10-08 21:00] VITALS: BP 133/87
--- NOTE | 2020-10-08 21:00 | NUR ---
Patient discharged with v/s stable. Written and verbal after care instructions given and explained. Patient verbalized understanding. Ambulatory with steady gait. All questions addressed prior to discharge. IV removed and pressure applied. Given food per pt request. Advised to follow up with PMD.
== END 2020-10-08 21:00 | disposition home or self-care (01) ==
LOC: MED 17:19
DX: F15.10 Other stimulant abuse, uncomplicated (principal); E87.6 Hypokalemia; I11.9 Hypertensive heart disease without heart failure; K21.9 Gastro-esophageal reflux disease without esophagitis; F17.210 Nicotine dependence, cigarettes, uncomplicated; F31.9 Bipolar disorder, unspecified; Z71.6 Tobacco abuse counseling
CPT/HCPCS: 36415; 80053; 84484; 84702; 85025; 93005; 96361; 96374; 99284; G0482; J2060; J7030

== ENCOUNTER 2020-10-12 06:30 | Emergency (ER) | payer OTHER ==
[~2020-10-12] VITALS: Ht 154.9 cm; Wt 52.2 kg
[2020-10-12 06:40] VITALS: BP 129/90
[2020-10-12] MEDS ORDERED: LORazepam 0.5 MG TAB PO ONE (07:25)
[2020-10-12] MEDS ORDERED: CRUSHER, PILL MC ONE (07:33)
[2020-10-12 08:03] VITALS: BP 129/90
[2020-10-13] MEDS ORDERED: BEN10 PO (07:19)
[2020-10-13] MEDS ORDERED: HYDR-636 PO (07:19)
== END 2020-10-12 08:06 | disposition home or self-care (01) ==
LOC: MED 06:30
DX: F41.9 Anxiety disorder, unspecified (principal)
CPT/HCPCS: 99283

== ENCOUNTER 2020-10-13 06:05 | Emergency (ER) | payer OTHER ==
[~2020-10-13] VITALS: Ht 154.9 cm; Wt 52.2 kg
[2020-10-13 06:09] VITALS: BP 140/90
--- NOTE | 2020-10-13 06:09 | NUR ---
TO BED AMBULATORY
--- NOTE | 2020-10-13 06:20 | NUR ---
Pt c/o abd pain with diarrhea x5 days. Was in this ER yesterday and discharged home. Denies urinary symptoms. Also c/o N/V x3 days. Hx of substance abuse. States she did not use any drugs or alcohol today or yesterday. Pt noted cursing at staff, asked to be respectful to staff but pt refused. MD aware.
[2020-10-13] MEDS ORDERED: LORazepam 0.5 MG TAB PO ONE (06:40)
[2020-10-13] MEDS ORDERED: KETOROLAC 30 MG/ML VIAL IM ONE (06:40)
--- NOTE | 2020-10-13 07:08 | NUR ---
received report from Betzy YOUNG, transfer of care at this time.
[2020-10-13] MEDS ORDERED: HYDR-636 PO (07:19)
[2020-10-13] MEDS ORDERED: BEN10 PO (07:19)
[2020-10-13 07:39] VITALS: BP 140/90
--- NOTE | 2020-10-13 07:40 | NUR ---
Patient discharged with v/s stable. Written and verbal after care instructions given and explained. Patient alert, oriented and verbalized understanding of instructions. Ambulatory with steady gait. All questions addressed prior to discharge. ID band removed. Patient advised to follow up with PMD. Rx of dicyclomine hydrochloride and hydroxyzine HCL given. Patient educated on indication of medication including possible reaction and side effects. Opportunity to ask questions provided and answered.
== END 2020-10-13 07:40 | disposition home or self-care (01) ==
LOC: MED 06:05
DX: R10.30 Lower abdominal pain, unspecified (principal); F41.1 Generalized anxiety disorder; I11.9 Hypertensive heart disease without heart failure; K21.9 Gastro-esophageal reflux disease without esophagitis
CPT/HCPCS: 74018; 81002; 81025; 96372; 99284; J1885

== ENCOUNTER 2020-10-23 02:20 | Emergency (ER) | payer OTHER ==
[~2020-10-23] VITALS: Ht 154.9 cm; Wt 52.2 kg
[~2020-10-23 02:20] MED LIST: BEN10 PO; HYDR-636 PO
[2020-10-23 02:30] VITALS: BP 147/112
--- NOTE | 2020-10-23 02:36 | NUR ---
35 Y/O F BIB SELF FROM HOME, C/O HIGH HEART RATE, ANXIETY AND ABD PAIN THAT STARTED 10/23/20 AROUND 0200. PT STATES SHE HAS NAUSEA, BUT NO VOMITING. DIARRHEA, LAST BM: 0000, BRIGHT RED BLEEDING FROM RECTAL AREA. PMH: HTN, CONGESTIVE HEART FAILURE. NKA.
--- NOTE | 2020-10-23 02:47 | NUR ---
ERMD AT BEDSIDE EXAMINING PT
[2020-10-23] MEDS ORDERED: LORazepam 2 MG/ML VIAL IM ONE (03:10)
[2020-10-23] MEDS ORDERED: ONDANSETRON 4 MG ODT PO ONE (03:15)
[2020-10-23 03:36] LABS: BARBITURATE, URINE NEGATIVE ng/ml (NEG <=200); BENZODIAZEPINE, URINE POSITIVE ng/mL (NEG <=200); CANNABINOID, URINE NEGATIVE ng/mL (NEG <=50); COCAINE, URINE NEGATIVE ng/mL (NEG <=300); OPIATE, URINE NEGATIVE ng/mL (NEG <=2000); PHENCYCLIDINE SCREEN,URINE NEGATIVE ng/mL (NEG <=25)
[2020-10-23 04:01] VITALS: BP 147/112
--- NOTE | 2020-10-23 04:02 | NUR ---
Patient discharged with v/s stable. PT LEFT WITHOUT DISCHARGE INSTRUCTIONS.
== END 2020-10-23 04:02 | disposition home or self-care (01) ==
LOC: MED 02:20
DX: F15.10 Other stimulant abuse, uncomplicated (principal); F41.9 Anxiety disorder, unspecified; F32.9 Major depressive disorder, single episode, unspecified; I11.9 Hypertensive heart disease without heart failure; K21.9 Gastro-esophageal reflux disease without esophagitis; Z71.6 Tobacco abuse counseling
CPT/HCPCS: 80305; 81002; 81025; 96372; 99283; J2060; Q0162

== ENCOUNTER 2020-12-03 16:46 | Emergency (ER) | payer OTHER ==
[~2020-12-03] VITALS: Ht 154.9 cm; Wt 51.3 kg
[2020-12-03 16:53] VITALS: BP 128/88
--- NOTE | 2020-12-03 17:27 | NUR ---
35 YO FEMALE BIB SELF C/O ANXIETY AND CHEST PAIN W/ SOB. SHARP/ HEAVINESS CHEST PAIN 9/10 X 4 HRS. CHEST PAIN RADIATES TO LOW BACK AND LEFT ARM. ANIXETY SINCE YESTERDAY. BED IN LOWEST POSITION, LOCKED, POSITIONED TO COMFORT. PMH: HTN, HEART DISEASE, ANXIETY, SUBSTANCE ABUSE, ALCOHOL ABUSE MEDS: HYDROXYZINE, ATIVAN, PROPANOLOL, LAMOTRIGE, MIRTAZAPINE, PANTOPRAZOLE, BUSPIRONE NKA
[2020-12-03] MEDS ORDERED: NACL 0.9% 1,000 ML IV ONE (17:40)
[2020-12-03 18:00] LABS: BASOPHILS # (AUTO) 0.1 K/uL (0.00-0.22); BASOPHILS % (AUTO) 0.6 % (0.0-2.0); EOSINOPHILS # (AUTO) 0.1 K/uL (0-0.4); EOSINOPHILS % (AUTO) 1.1 % (0.0-4.0); HEMATOCRIT 36.5 % (36-48); HEMOGLOBIN 12.1 g/dL (12.0-16.0); LYMPHOCYTES # (AUTO) 3.1 K/uL (2.5-16.5); LYMPHOCYTES % (AUTO) 30.1 % (20.5-51.1); MEAN CORPUSCULAR HEMOGLOBIN 28 pg (27-31); MEAN CORPUSCULAR HGB CONC 33 g/dL (33-37); MEAN CORPUSCULAR VOLUME 85.1 fL (80-94); MONOCYTES # (AUTO) 0.6 K/uL (0.8-1.0); MONOCYTES % (AUTO) 6.1 % (1.7-9.3); NEUTROPHILS # (AUTO) 6.3 K/uL (1.8-7.7); NEUTROPHILS % (AUTO) 62.1 % (42.2-75.2); PLATELET COUNT (AUTO) 494 K/uL (140-450); RED BLOOD CELL COUNT(AUTO) 4.29 MIL/uL (4.20-5.40); RED CELL DISTRIBUTION WIDTH 14.9 % (11.6-13.7); WHITE BLOOD COUNT (AUTO) 10.2 K/uL (4.8-10.8)
[2020-12-03 18:12] LABS: ALBUMIN 3.6 g/dL (3.4-5.0); ANION GAP 14.2 (8-16); CARBON DIOXIDE 25.2 mmol/L (21-32); CREATININE 0.7 mg/dL (0.6-1.3); POTASSIUM 3.4 mmol/L (3.5-5.1); TOTAL BILIRUBIN 0.2 mg/dL (0.0-1.0)
--- NOTE | 2020-12-03 18:28 | NUR ---
PATIENT REFUSED BENADRYL--MEDICATION RETURNED TO [facility]
[2020-12-03 18:34] VITALS: BP 128/88
--- NOTE | 2020-12-03 18:34 | NUR ---
Patient does not wish to proceed with medical care recommended by ROSIBEL ELLIS. Patient given information related to possible complications, up to and including , which could occur as a result of leaving hospital at this time. Patient verbalizes understanding of risks involved leaving against medical advice. Patient has signed AMA form. PT INSTRUCTED TO FOLLOW UP WITH HOWIE CARY.
--- NOTE | 2020-12-03 18:36 | NUR ---
PATIENT IMMEDIATELY CHANGED MIND AND STATED SHE WANTED BENADRYL. ROSIBEL ELLIS MADE AWARE.
[2020-12-03] MEDS ORDERED: KETOROLAC 30 MG/ML VIAL IVP ONE (18:40)
--- NOTE | 2020-12-03 18:43 | NUR ---
Pt changed mind again, requesting to leave. AMA form signed and in chart.
--- NOTE | 2020-12-04 20:16 | NUR ---
LATE ENTRY- NORMAL SALINE 0.9% DISCONTINUED AT 1900
== END 2020-12-03 18:43 | disposition left against medical advice (07) ==
LOC: MED 16:46
DX: R07.9 Chest pain, unspecified (principal); F15.10 Other stimulant abuse, uncomplicated; K21.9 Gastro-esophageal reflux disease without esophagitis; I10 Essential (primary) hypertension; F41.9 Anxiety disorder, unspecified; Z76.5 Malingerer [conscious simulation]; Z79.899 Other long term (current) drug therapy
CPT/HCPCS: 36415; 80053; 81002; 81025; 84484; 85025; 93005; 99284; J7030; Q0163

== ENCOUNTER 2021-04-07 22:28 | Emergency (ER) | payer OTHER ==
--- NOTE | 2021-04-07 22:49 | NUR ---
PATIENT CALLED TO TRIAGE , NO RESPONSE PATIENT LEFT WITHOUT BEING SEEN BY DR. TADEO. NO FURTHER CARE PROVIDED FOR PATIENT.
--- NOTE | 2021-04-07 22:55 | NUR ---
CALLED FOR THE SECOND TIME NO RESPONSE
--- NOTE | 2021-04-07 23:05 | NUR ---
CALLED FOR THE THIRD TIME NO RESPONSE
[2021-04-08] MEDS ORDERED: BACI1PAC6 TP (12:07)
[2021-04-08] MEDS ORDERED: NAPR-54 PO (12:07)
== END 2021-04-07 22:49 | disposition left against medical advice (07) ==
LOC: MED 22:28
DX: M79.606 Pain in leg, unspecified (principal); Z53.21 Procedure and treatment not carried out due to patient leaving prior to being seen by health care provider

== ENCOUNTER 2021-04-08 09:24 | Emergency (ER) | payer OTHER ==
[~2021-04-08] VITALS: Ht 154.9 cm; Wt 49.9 kg
[2021-04-08 09:27] VITALS: BP 136/102
--- NOTE | 2021-04-08 09:35 | NUR ---
LACERATION COVERED WITH GAUZE AND BLEEDING CONTROLLED. ERMD AWARE
[2021-04-08] MEDS ORDERED: KETOROLAC 60 MG/2 ML VIAL IM ONE (09:50)
--- NOTE | 2021-04-08 09:52 | NUR ---
FELL DOWN STAIRS ONE HOUR AGO, 1 CM FULL THICKNESS LAC TO RT ANTERIOR FOREARM, OBVIOUS DEFORMITY TO FOREARM, CAP REFILL BRISK, MOTOR IMPAIRED TO FINGERS, C/O NUMBNESS TO FINGERS. ARM BOARD PLACED FOR COMFORT.
--- NOTE | 2021-04-08 09:52 | NUR ---
DR FLORES AT BEDSIDE FOR EXAM AND EVAL. ORDERS RECEIVED.
--- NOTE | 2021-04-08 10:13 | NUR ---
PORTABLE XRAYS OBTAINED.
--- NOTE | 2021-04-08 10:18 | NUR ---
AWAITING RESULTS, FRESH ICE PACKS APPLIED TO RIGHT FOREARM.
[2021-04-08] MEDS ORDERED: BACITRACIN OINT 500 UNITS/GM PKT TP ONE ×2 (11:25→12:14)
[2021-04-08] MEDS ORDERED: LIDOCAINE/EPI 1% 1:100000 20 ML VIAL INJ ONE (11:25)
--- NOTE | 2021-04-08 11:48 | NUR ---
RESTING AWAITING RESULTS AND PLAN OF CARE.
--- NOTE | 2021-04-08 11:49 | NUR ---
RECHECKED CMS, NOW APPEARS INTACT.
[2021-04-08] MEDS ORDERED: NAPR-54 PO (12:07)
[2021-04-08] MEDS ORDERED: BACI1PAC6 TP (12:07)
--- NOTE | 2021-04-08 12:19 | NUR ---
LAC REPAIR BY DR SKINNER. SNACK PROVIDED, AWAITING SPLINT APPLICATION BY ERT.
--- NOTE | 2021-04-08 12:35 | NUR ---
Patient discharged with v/s stable. Written and verbal after care instructions given and explained. Patient alert, oriented and verbalized understanding of instructions. Ambulatory with steady gait. All questions addressed prior to discharge. ID band removed. Patient advised to follow up with PMD. Rx of Naproxen and Bacitracin given. Patient educated on indication of medication including possible reaction and side effects. Opportunity to ask questions provided and answered.
== END 2021-04-08 12:35 | disposition home or self-care (01) ==
LOC: MED 09:24
DX: S61.511A Laceration without foreign body of right wrist, initial encounter (principal); K21.9 Gastro-esophageal reflux disease without esophagitis; I10 Essential (primary) hypertension; Z79.899 Other long term (current) drug therapy; W19.XXXA Unspecified fall, initial encounter; Y93.89 Activity, other specified; Y92.89 Other specified places as the place of occurrence of the external cause; Y99.8 Other external cause status
CPT/HCPCS: 12001; 73090; 73110; 90471; 90715; 96372; 99284; J1885; J2001

== ENCOUNTER 2021-04-16 08:39 | Emergency (ER) | payer OTHER, SELFPAY ==
[~2021-04-16] VITALS: Ht 154.9 cm; Wt 49.9 kg
[~2021-04-16 08:39] MED LIST changes: +BACI1PAC6 TP; +NAPR-54 PO
[2021-04-16 08:45] VITALS: BP 171/120
--- NOTE | 2021-04-16 08:53 | NUR ---
Patient wheelchair assisted to bed 2 at this time.
[2021-04-16] MEDS ORDERED: NACL 0.9% 1,000 ML IV ONE (09:10)
[2021-04-16] MEDS ORDERED: ONDANSETRON 4 MG/2 ML VIAL IVP ONE (09:10)
[2021-04-16] MEDS ORDERED: FAMOTIDINE 20 MG/2 ML VIAL IVP ONE (09:10)
[2021-04-16] MEDS ORDERED: MORPHINE SULFATE 2 MG/ML SYR IVP ONE (09:10)
[2021-04-16] MEDS ORDERED: METOPROLOL 5 MG/5 ML VIAL IVP ONE ×2 (09:15→11:05)
--- NOTE | 2021-04-16 09:15 | NUR ---
35/F presents to ED with c/o generalized abdominal pain since this morning. Patient also c/o nausea and vomiting, stating "multiple episodes of vomiting" since this morning. Admits to daily alcohol use and used alcohol yesterday and meth. Describes it as 10/10 sharp abdominal pain in all quadrants. Patient denies any flu, cough, chest pain, shortness of breath, diarrhea or urinary symptoms.
[2021-04-16 09:32] LABS: BASOPHILS % (AUTO) 0.7 % (0.0-2.0); EOSINOPHILS % (AUTO) 0.2 % (0.0-4.0); HEMOGLOBIN 12.9 g/dL (12.0-16.0); LYMPHOCYTES # (AUTO) 1.6 K/uL (2.5-16.5); LYMPHOCYTES % (AUTO) 23.8 % (20.5-51.1); MEAN CORPUSCULAR HEMOGLOBIN 28 pg (27-31); MEAN CORPUSCULAR HGB CONC 33 g/dL (33-37); MEAN CORPUSCULAR VOLUME 85.4 fL (80-94); MONOCYTES # (AUTO) 0.6 K/uL (0.8-1.0); MONOCYTES % (AUTO) 8.4 % (1.7-9.3); NEUTROPHILS # (AUTO) 4.4 K/uL (1.8-7.7); NEUTROPHILS % (AUTO) 66.9 % (42.2-75.2); PLATELET COUNT (AUTO) 514 K/uL (140-450); RED BLOOD CELL COUNT(AUTO) 4.57 MIL/uL (4.20-5.40); RED CELL DISTRIBUTION WIDTH 19.9 % (11.6-13.7); WHITE BLOOD COUNT (AUTO) 6.6 K/uL (4.8-10.8)
[2021-04-16 09:40] LABS: ALBUMIN 4.5 g/dL (3.4-5.0); ANION GAP 15.8 (8-16); CARBON DIOXIDE 24.7 mmol/L (21-32); CREATININE 0.6 mg/dL (0.6-1.3); POTASSIUM 3.5 mmol/L (3.5-5.1); TOTAL BILIRUBIN 0.5 mg/dL (0.0-1.0)
--- NOTE | 2021-04-16 10:04 | NUR ---
Patient provided urine cup, ambulated to restroom with steady gait to provide sample.
[2021-04-16] MEDS ORDERED: HALOPERIDOL IM 5 MG/ML VIAL IM ONE (10:20)
--- NOTE | 2021-04-16 11:03 | NUR ---
pt moved to bed 7
--- NOTE | 2021-04-16 11:05 | NUR ---
Pt report given to Halina YOUNG. Transfer of care at this time.
[2021-04-16] MEDS ORDERED: FAMO-92 PO (11:28)
[2021-04-16] MEDS ORDERED: METO-744 PO (11:28)
[2021-04-16] MEDS ORDERED: ONDA-24 PO (11:28)
[2021-04-16 11:48] VITALS: BP 126/87
--- NOTE | 2021-04-16 11:48 | NUR ---
Patient discharged with v/s stable. Written and verbal after care instructions given and explained. Patient alert, oriented and verbalized understanding of instructions. Ambulatory with steady gait. All questions addressed prior to discharge. ID band removed. Patient advised to follow up with PMD. Rx of ONDANSETRON, METOPROLOL, FAMOTIDINE given. Patient educated on indication of medication including possible reaction and side effects. Opportunity to ask questions provided and answered.
== END 2021-04-16 11:48 | disposition home or self-care (01) ==
LOC: MED 08:39
DX: K29.70 Gastritis, unspecified, without bleeding (principal); R11.2 Nausea with vomiting, unspecified; I10 Essential (primary) hypertension; F15.10 Other stimulant abuse, uncomplicated; F17.290 Nicotine dependence, other tobacco product, uncomplicated; K21.9 Gastro-esophageal reflux disease without esophagitis; Z79.899 Other long term (current) drug therapy
CPT/HCPCS: 36415; 80053; 81002; 81025; 83690; 85025; 96361; 96372; 96374; 96375; 96376; 99284; J1630; J2270; J2405; J3490; J7030

== ENCOUNTER 2021-04-28 09:34 | Emergency (ER) | payer OTHER, SELFPAY ==
[~2021-04-28] VITALS: Ht 165.1 cm; Wt 59.0 kg
[~2021-04-28 09:34] MED LIST changes: +FAMO-92 PO; +METO-744 PO; +ONDA-24 PO
--- NOTE | 2021-04-28 09:36 | NUR ---
PT BROUGHT TO BED 7 VIA TETE HOLCOMB
--- NOTE | 2021-04-28 09:37 | NUR ---
SAID AT BEDSIDE - SECURITY PAGED AND AT BEDSIDE. ORDERS RECEIVED.
[2021-04-28] MEDS ORDERED: HALOPERIDOL IM 5 MG/ML VIAL IM ONE (09:40)
[2021-04-28] MEDS ORDERED: diphenhydrAMINE 50 MG/ML VIAL IM ONE (09:40)
[2021-04-28] MEDS ORDERED: LORazepam 2 MG/ML VIAL IM ONE ×2 (09:40→10:15)
--- NOTE | 2021-04-28 09:41 | NUR ---
Pt refusing Vital Signs. Pt is disoriented unable to answer questions. Pt on 4 point restraints. Pt yelling "Please help me! They are going to kill me!"
--- NOTE | 2021-04-28 09:44 | NUR ---
Pt got out of 4 point restraints and ran to patient in bed 8. Pt returned to bed 7. Unable to orient pt at this time. Pt continueing to yell. "Please don't take the patients out. Help me! No! Please don't take the patients out" "Thank you god, this is how I " Pt reminded she is in a safe place and we are here to help her.
--- NOTE | 2021-04-28 10:01 | NUR ---
PT a&Ox1 at this time. Vital Signs obtained. Pt calm laying in bed at this time.
--- NOTE | 2021-04-28 10:32 | NUR ---
Blood drawn and sent to lab
[2021-04-28 11:31] LABS: BASOPHILS % (AUTO) 0.3 % (0.0-2.0); EOSINOPHILS % (AUTO) 0.1 % (0.0-4.0); HEMATOCRIT 34.6 % (36-48); HEMOGLOBIN 11.3 g/dL (12.0-16.0); LYMPHOCYTES # (AUTO) 1.7 K/uL (2.5-16.5); LYMPHOCYTES % (AUTO) 12.3 % (20.5-51.1); MEAN CORPUSCULAR HEMOGLOBIN 28 pg (27-31); MEAN CORPUSCULAR HGB CONC 33 g/dL (33-37); MEAN CORPUSCULAR VOLUME 84.8 fL (80-94); MONOCYTES # (AUTO) 0.8 K/uL (0.8-1.0); MONOCYTES % (AUTO) 6.2 % (1.7-9.3); NEUTROPHILS # (AUTO) 10.9 K/uL (1.8-7.7); NEUTROPHILS % (AUTO) 81.1 % (42.2-75.2); PLATELET COUNT (AUTO) 322 K/uL (140-450); RED BLOOD CELL COUNT(AUTO) 4.07 MIL/uL (4.20-5.40); RED CELL DISTRIBUTION WIDTH 18.9 % (11.6-13.7); WHITE BLOOD COUNT (AUTO) 13.5 K/uL (4.8-10.8)
[2021-04-28 11:45] LABS: ALBUMIN 4.7 g/dL (3.4-5.0); ASPARTATE AMINOTRANSFERASE 90 U/L (15-37); CARBON DIOXIDE 23.4 mmol/L (21-32); CHLORIDE 100 mmol/L (98-107); CREATININE 0.7 mg/dL (0.6-1.3); GFR ARICAN-AMERICAN 122 mL/min (>90); GLUCOSE 84 mg/dL (74-106); LIPASE 143 U/L (73-393); POTASSIUM 3.4 mmol/L (3.5-5.1); SALICYLATE 2.8 mg/dL (2.8-20.0); SODIUM SERUM 136 mmol/L (136-145); TOTAL BILIRUBIN 0.7 mg/dL (0.0-1.0); UREA NITROGEN, BLOOD 23 mg/dL (7-18)
[2021-04-28 11:46] LABS: ACETAMINOPHEN < 0.5 ug/ml (10-30)
--- NOTE | 2021-04-28 12:00 | NUR ---
Pt resting in bed with eyes closed. VSS. Will continue to monitor.
--- NOTE | 2021-04-28 13:00 | NUR ---
No changes upon assessment
--- NOTE | 2021-04-28 13:47 | NUR ---
Patient appears to be resting in bed. Vital Signs within normal limits. Respirations even and unlabored.
--- NOTE | 2021-04-28 14:44 | NUR ---
Transfer of care and report given to HANNAH Bhakta
--- NOTE | 2021-04-28 15:28 | NUR ---
Report and continuation of care received from HANNAH Bhakta.
--- NOTE | 2021-04-28 15:53 | NUR ---
Pt resting in bed with eyes closed. VSS. Will continue to monitor.
--- NOTE | 2021-04-28 17:28 | NUR ---
patient asleep unable to get UA.
--- NOTE | 2021-04-28 17:45 | NUR ---
Dr. Avendano made aware of no UA; advised of no need to straight cath. Collect urine sample when patient returns to normal baseline mentation.
--- NOTE | 2021-04-28 17:45 | NUR ---
Note mario in ED - 04/28/[address] Avendano made aware of no UA; advised of no need to straight cath. Collect urine sample when patient returns to normal baseline mentation. until patient returns to normal baseline mentation.
--- NOTE | 2021-04-28 19:25 | NUR ---
Report and transfer of care endjessid to HANNAH Erickson.
--- NOTE | 2021-04-28 20:00 | NUR ---
RESTING IN BED WITH EYES CLOSED. RESPIRATIONS REGULAR AND UNLABORED
--- NOTE | 2021-04-29 | NUR ---
CONTINUES TO REST WITH EYES CLOSED. AWAKENS SLIGHTLY FOR VS THEN RETURNS TO RESTING WITH EYES CLOSED
--- NOTE | 2021-04-29 06:00 | NUR ---
CONTINUES TO REST WITH EYES CLOSED. RESPIRATIONS REGULAR AND UNLABORED. AWAKENS SLIGHTLY FOR VS, STILL UNABLE TO PROVIDE UA. RETURNS TO RESTING WITH EYES CLOSED
--- NOTE | 2021-04-29 07:20 | NUR ---
Pt resting in bed with eyes closed. VSS. Will continue to monitor.
--- NOTE | 2021-04-29 09:14 | NUR ---
Pt sitting up in bed eating breakfast
--- NOTE | 2021-04-29 10:00 | NUR ---
Pt ambulated with steady gait. Pt c/o of dizziness. MD Sandoval made aware
[2021-04-29 10:51] VITALS: BP 111/70
--- NOTE | 2021-04-29 10:52 | NUR ---
Patient discharged with v/s stable. Written and verbal after care instructions given and explained. Patient verbalized understanding. Ambulatory with steady gait. All questions addressed prior to discharge. Advised to follow up with PMD. Pt given bus pass
== END 2021-04-29 10:52 | disposition home or self-care (01) ==
LOC: MED 09:34
DX: R41.82 Altered mental status, unspecified (principal); F15.10 Other stimulant abuse, uncomplicated; D72.829 Elevated white blood cell count, unspecified; D64.9 Anemia, unspecified
CPT/HCPCS: 36415; 80053; 83690; 84703; 85025; 93005; 96372; 99291; G0480; G0482; J1200; J1630; J2060

== ENCOUNTER 2021-11-12 10:19 | Emergency (ER) | payer OTHER, SELFPAY ==
[~2021-11-12] VITALS: Ht 154.9 cm; Wt 47.6 kg
[~2021-11-12 10:19] MED LIST changes: -BACI1PAC6 TP; -BEN10 PO; +CEPH-588 PO; -FAMO-92 PO; -HYDR-636 PO; +IBUP-2213 PO; -METO-744 PO; -NAPR-54 PO; -ONDA-24 PO; +SULF-59 PO
[2021-11-12 10:23] VITALS: BP 132/94
--- NOTE | 2021-11-12 10:28 | NUR ---
PT W/C ASSISTED TO ER BED 5.
--- NOTE | 2021-11-12 10:40 | NUR ---
36 Y/O FEMALE C/O LEFT HIP AND LOWER BACK PAIN 03/24 DESCRIBES ACHING WORST WITH AMBULATION [id number]. PT, STATES SHE FELL DOWN THE STAIRS 2 MONTHS AGO AND PAIN HAS WORSENED SINCE. DENIES NEW RECENT INJURY OR TRAUMA, REPORTS TAKING IBUPROFEN FOR PAIN WITH SOME RELIEF. DENIES FEVER/CHILLS. STATES +N/-V. PMH: HTN, ANXIETY, DEPRESSION, BIPOLAR NKA
--- NOTE | 2021-11-12 10:45 | NUR ---
DR. LEVY AT PT BEDSIDE FOR FURTHER EVALUATION.
--- NOTE | 2021-11-12 11:23 | NUR ---
PT STATES SHE IS UNABLE TO PROVIDE UA AT THIS TIME, H20 PROVIDED PER MD ORDER WILL REASSESS IN 15MINUTES.
[2021-11-12 11:35] LABS: BASOPHILS # (AUTO) 0.1 K/uL (0.00-0.22); BASOPHILS % (AUTO) 0.5 % (0.0-2.0); EOSINOPHILS % (AUTO) 0.3 % (0.0-4.0); HEMATOCRIT 32.4 % (36-48); HEMOGLOBIN 10.6 g/dL (12.0-16.0); LYMPHOCYTES # (AUTO) 2.2 K/uL (2.5-16.5); LYMPHOCYTES % (AUTO) 19.6 % (20.5-51.1); MEAN CORPUSCULAR HEMOGLOBIN 26 pg (27-31); MEAN CORPUSCULAR HGB CONC 33 g/dL (33-37); MEAN CORPUSCULAR VOLUME 79.3 fL (80-94); MONOCYTES # (AUTO) 0.6 K/uL (0.8-1.0); MONOCYTES % (AUTO) 5.7 % (1.7-9.3); NEUTROPHILS # (AUTO) 8.4 K/uL (1.8-7.7); NEUTROPHILS % (AUTO) 73.9 % (42.2-75.2); PLATELET COUNT (AUTO) 526 K/uL (140-450); RED BLOOD CELL COUNT(AUTO) 4.08 MIL/uL (4.20-5.40); RED CELL DISTRIBUTION WIDTH 16.9 % (11.6-13.7); WHITE BLOOD COUNT (AUTO) 11.4 K/uL (4.8-10.8)
--- NOTE | 2021-11-12 11:52 | NUR ---
PT STATES SHE IS UNABLE TO PROVIDE UA AT THIS TIME, H20 PROVIDED PER MD ORDER WILL REASSESS IN 15MINUTES.
--- NOTE | 2021-11-12 12:26 | NUR ---
TECHNICIAN INVENTORY SPECIALIST AT BEDSIDE FOR BLOOD DRAW
[2021-11-12 12:52] LABS: ALBUMIN 2.5 g/dL (3.4-5.0); ANION GAP 16.3 (8-16); ASPARTATE AMINOTRANSFERASE 66 U/L (15-37); CARBON DIOXIDE 25.4 mmol/L (21-32); CHLORIDE 96 mmol/L (98-107); CREATININE 0.4 mg/dL (0.6-1.3); GFR ARICAN-AMERICAN 234 mL/min (>90); GLUCOSE 105 mg/dL (74-106); POTASSIUM 4.7 mmol/L (3.5-5.1); SODIUM SERUM 133 mmol/L (136-145); TOTAL BILIRUBIN 0.5 mg/dL (0.0-1.0); UREA NITROGEN, BLOOD 8 mg/dL (7-18)
--- NOTE | 2021-11-12 12:58 | NUR ---
PT ATTEMPTING TO PROVIDE UA SAMPLE AT THIS TIME USING BEDPAN.
[2021-11-12 13:02] LABS: PROTHROMBIN TIME 10.1 secs (10.8-13.4)
--- NOTE | 2021-11-12 13:13 | NUR ---
PER DR. LEVY BLADDER SCAN TO BE DONE POST VOID. BLADDER SCAN COMPLETED RESIDUAL 162ML. MADE AWARE.
--- NOTE | 2021-11-12 13:19 | NUR ---
COLLECTED BIBI MARY, GAVE EMIGDIO JOSHI FLOUR BLENDER.
--- NOTE | 2021-11-12 13:24 | NUR ---
DR. LEVY AT PT BEDSIDE FOR REEVALUATION.
--- NOTE | 2021-11-12 13:43 | NUR ---
OBTAINED TRANSFER CONSENT PLACED IN PT CHART.
--- NOTE | 2021-11-12 13:50 | NUR ---
SPOKE WITH MINDY RUBIN RN TO GIVE REPORT FOR PENDING TRANSFER. ETA 45MINUTES.
[2021-11-12] MEDS ORDERED: NICOTINE TRANSD SYS 14 MG/24 HR PATCH TD ONE (13:54)
[2021-11-12] MEDS: ONDANSETRON 4 MG/2 ML VIAL IVP ONE (13:59)
[2021-11-12] MEDS: NICOTINE TRANSD SYS 14 MG/24 HR PATCH TD ONE (14:00)
[2021-11-12] MEDS: MORPHINE SULFATE 4 MG/ML SYR IVP ONE (14:00)
[2021-11-12 14:30] LABS: APPEARANCE,URINE CLEAR (CLEAR); BILIRUBIN,URINE NEGATIVE (NEGATIVE); BLOOD, URINE NEGATIVE (NEGATIVE); COLOR,URINE YELLOW (YELLOW); LEUKOCYTE ESTERASE ,URINE NEGATIVE (NEGATIVE); NITRITE, URINE NEGATIVE (NEGATIVE); UGLUCOSE NEGATIVE (NEGATIVE)
[2021-11-12 15:01] VITALS: BP 150/105
--- NOTE | 2021-11-12 15:03 | NUR ---
Patient to be transferred to [facility]. Is being transferred due to HIGHER LEVEL OF CARE. Receiving facility has accepting physician and available space. ER physician has signed transfer form. Patient or responsible democrat has agreed to transfer and signed form. Patient belongings inventoried and will be sent with patient. Copy of nursing notes, lab reports, EKG, Physicians Orders and X-rays to be sent with patient. Report called to [facility] [employer] [facility] at receiving facility. [facility] ambulance service has been called for transfer. ETA is 45MINUTES.
[2021-11-13] MEDS ORDERED: NICOTINE TRANSD SYS 14 MG/24 HR PATCH TD SCH (09:00)
== END 2021-11-12 15:03 | disposition short-term general hospital (02) ==
LOC: MED 10:19
DX: M54.50 Low back pain, unspecified (principal); Z20.822 Contact with and (suspected) exposure to COVID-19; M25.551 Pain in right hip; K21.9 Gastro-esophageal reflux disease without esophagitis; I10 Essential (primary) hypertension; F15.90 Other stimulant use, unspecified, uncomplicated; Z79.899 Other long term (current) drug therapy
CPT/HCPCS: 36415; 80053; 81003; 81025; 82550; 82553; 83605; 83874; 84484; 84703; 85025; 85610; 85651; 85730; 86140; 87040; 87086; 93005; 96374; 96375; 99285; J2270; J2405

== ENCOUNTER 2021-12-05 00:08 | Emergency (ER) | payer MEDICAID, OTHER ==
[~2021-12-05] VITALS: Ht 162.6 cm; Wt 47.6 kg
[2021-12-05 00:24] VITALS: BP 123/63
[2021-12-05] MEDS: MORPHINE SULFATE 4 MG/ML SYR IVP ONE (01:09)
[2021-12-05 02:12] VITALS: BP 123/63
== END 2021-12-05 02:11 | disposition home or self-care (01) ==
LOC: MED 00:08
DX: T85.618A Breakdown (mechanical) of other specified internal prosthetic devices, implants and grafts, initial encounter (principal); G89.29 Other chronic pain; M54.9 Dorsalgia, unspecified; K21.9 Gastro-esophageal reflux disease without esophagitis; I10 Essential (primary) hypertension; Z79.899 Other long term (current) drug therapy; Y84.8 Other medical procedures as the cause of abnormal reaction of the patient, or of later complication, without mention of misadventure at the time of the procedure; Y92.89 Other specified places as the place of occurrence of the external cause
CPT/HCPCS: 73060; 96374; 99283; J2270; Q0092

== ENCOUNTER 2021-12-16 01:53 | Emergency (ER) | payer MEDICAID ==
[~2021-12-16] VITALS: Ht 157.5 cm; Wt 56.2 kg
--- NOTE | 2021-12-16 01:55 | NUR ---
PT WAS TAKEN TO BED 06
--- NOTE | 2021-12-16 01:55 | NUR ---
Dr. Sandoval at bedside to exam patient.
[2021-12-16 01:56] VITALS: BP 145/94
[2021-12-16] MEDS ORDERED: NACL 0.9% 1,000 ML IV ONE (02:05)
--- NOTE | 2021-12-16 03:31 | NUR ---
PATIENT ON MONITOR
--- NOTE | 2021-12-16 04:21 | NUR ---
PATIENT MORE ALERT. HX OF DRUG USE. ON SECOND LITER OF FLUIDS.
--- NOTE | 2021-12-16 05:23 | NUR ---
PENDING D/C IN AM. WILL ROAD TEST PATIENT PRIOR TO DC
--- NOTE | 2021-12-16 05:40 | NUR ---
PATIENT TO BATHROOM WITH ASSIST . GAIT STEADY.
[2021-12-16 06:00] VITALS: BP 144/98
--- NOTE | 2021-12-16 06:01 | NUR ---
The patient's care was reviewed and supervised by Alma Quinn RN.
== END 2021-12-16 06:00 | disposition home or self-care (01) ==
LOC: MED 01:53
DX: F10.129 Alcohol abuse with intoxication, unspecified (principal); R11.2 Nausea with vomiting, unspecified; K21.9 Gastro-esophageal reflux disease without esophagitis; I10 Essential (primary) hypertension; F12.90 Cannabis use, unspecified, uncomplicated; Z79.1 Long term (current) use of non-steroidal anti-inflammatories (NSAID); Z71.6 Tobacco abuse counseling; Z79.2 Long term (current) use of antibiotics
CPT/HCPCS: 96360; 99283

== ENCOUNTER 2021-12-16 07:31 | Emergency (ER) | payer MEDICAID ==
[~2021-12-16] VITALS: Ht 154.9 cm; Wt 42.8 kg
[2021-12-16 07:36] VITALS: BP 182/119
--- NOTE | 2021-12-16 07:45 | NUR ---
PATIENT AMBULATED TO BED 4.
--- NOTE | 2021-12-16 07:53 | NUR ---
36 Y/O FEMALE BIB SELF C/O DIZZINESS, CRAMPING ABD PAIN 10/10, NAUSEA AND VOMITING, DENIES ANY DIARRHEA. DENIES PAIN RADIATION. WAS SEEN IN ER LAST NIGHT FOR ALCOHOL INTOXICATION, DENIES TAKING ANY MEDICATION. BP IN TRIAGE 182/119. BP NOW 145/95, NOTED WITH CHILLS, GIVEN WARM BLANKET, PLACED ON PRACTICE OR STUDENT TEACHER. STATING THAT "THE WORLD IS TURNING" PMH: GERD, HTN, CARDIAC DIASEASE (UNSPECIFIED) NKA
--- NOTE | 2021-12-16 07:53 | NUR ---
Note undone in EDM - 12/16/21 at 0802 by FRANK 36 Y/O FEMALE BIB SELF C/O DIZZINESS, CRAMPING ABD PAIN 10/10, NAUSEA AND VOMITING, DENIES ANY DIARRHEA. DENIES PAIN RADIATION. WAS SEEN IN ER LAST NIGHT FOR ALCOHOL INTOXICATION, DENIES TAKING ANY MEDICATION. BP IN TRIAGE 182/119. BP NOW 145/95, NOTED WITH CHILLS, GIVEN WARM BLANKET, PLACED ON SET MAKING MACHINE OPERATOR. STATING THAT "THE WORLD IS TURNING"
--- NOTE | 2021-12-16 08:05 | NUR ---
DR TIWARI AT BEDSIDE EVALUATING PT
--- NOTE | 2021-12-16 08:20 | NUR ---
social service agency director at bedside
--- NOTE | 2021-12-16 09:19 | NUR ---
Patient given written and verbal discharge instructions and verbalizes understanding. Given copies of tests performed during visit. Patient is awake, alert and oriented. Ambulatory with steady gait. Refuses offer of correction placement. Given list of available shelters in surrounding areas. GIVEN HOMELESS PACKET, UBER FOR [facility] ARRANGED
== END 2021-12-16 09:19 | disposition home or self-care (01) ==
LOC: MED 07:31
DX: F10.10 Alcohol abuse, uncomplicated (principal); K21.9 Gastro-esophageal reflux disease without esophagitis; I10 Essential (primary) hypertension; F15.90 Other stimulant use, unspecified, uncomplicated; Z59.00 Homelessness unspecified; Z79.899 Other long term (current) drug therapy
CPT/HCPCS: 99281

== ENCOUNTER 2021-12-17 14:21 | Emergency (ER) | payer MEDICAID ==
[~2021-12-17] VITALS: Ht 154.9 cm; Wt 47.6 kg
--- NOTE | 2021-12-17 14:25 | NUR ---
BIBA BLS TO ER BED 5
[2021-12-17 14:26] VITALS: BP 129/93
--- NOTE | 2021-12-17 15:38 | NUR ---
FOOD GIVEN TO PATIENT
[2021-12-17 15:41] LABS: BASOPHILS % (AUTO) 0.1 % (0.0-2.0); EOSINOPHILS % (AUTO) 0.2 % (0.0-4.0); HEMATOCRIT 30.4 % (36-48); HEMOGLOBIN 9.6 g/dL (12.0-16.0); LYMPHOCYTES # (AUTO) 1.1 K/uL (2.5-16.5); LYMPHOCYTES % (AUTO) 9.9 % (20.5-51.1); MEAN CORPUSCULAR HEMOGLOBIN 27 pg (27-31); MEAN CORPUSCULAR HGB CONC 32 g/dL (33-37); MEAN CORPUSCULAR VOLUME 86.1 fL (80-94); MONOCYTES # (AUTO) 0.8 K/uL (0.8-1.0); MONOCYTES % (AUTO) 6.6 % (1.7-9.3); NEUTROPHILS # (AUTO) 9.5 K/uL (1.8-7.7); NEUTROPHILS % (AUTO) 83.2 % (42.2-75.2); PLATELET COUNT (AUTO) 423 K/uL (140-450); RED BLOOD CELL COUNT(AUTO) 3.53 MIL/uL (4.20-5.40); RED CELL DISTRIBUTION WIDTH 20.1 % (11.6-13.7); WHITE BLOOD COUNT (AUTO) 11.4 K/uL (4.8-10.8)
[2021-12-17 15:57] LABS: CREATININE 0.6 mg/dL (0.6-1.3)
--- NOTE | 2021-12-17 16:25 | NUR ---
PT RESTING IN BED. CONTINUES TO ASK FOR PAIN MEDICATION . PT HAS BEEN BROUGHT TO THE EMERGNECY ROOM 3 TIMES IN THE LAST 48 HOURS
[2021-12-17 16:59] VITALS: BP 129/93
--- NOTE | 2021-12-17 17:00 | NUR ---
PATIENT REFUSING TO LEAVE. SECURITY AT BEDSIDE. PT REFUSED TO SIGN DC PAPERWORK. AGUSTÍN RN SIGN OFF ON DC PAPERWORK. PATIENT ESCORTED TO WAITING ROOM
--- NOTE | 2021-12-17 17:01 | NUR ---
The patient's care was reviewed and supervised by Bhavana Key RN.
== END 2021-12-17 16:59 | disposition home or self-care (01) ==
LOC: MED 14:21
DX: G89.29 Other chronic pain (principal); M54.9 Dorsalgia, unspecified; R53.1 Weakness; I11.0 Hypertensive heart disease with heart failure; I50.9 Heart failure, unspecified; K21.9 Gastro-esophageal reflux disease without esophagitis; F17.210 Nicotine dependence, cigarettes, uncomplicated; F15.90 Other stimulant use, unspecified, uncomplicated; Z79.899 Other long term (current) drug therapy; Z98.890 Other specified postprocedural states
CPT/HCPCS: 36415; 80048; 83605; 85025; 99283

== ENCOUNTER 2022-01-06 12:01 | Emergency (ER) | payer OTHER ==
[~2022-01-06] VITALS: Ht 180.3 cm; Wt 45.4 kg
--- NOTE | 2022-01-06 12:02 | NUR ---
PT YSABEL VIA GURNEY TO BED 11.
[2022-01-06 12:08] VITALS: BP 126/84
--- NOTE | 2022-01-06 12:18 | NUR ---
36/F BIBA FROM STREETS. PER EMS PATIENT CALLED 911 STATING HER HEART WAS "RACING" ADMITS TO METH USE AND DRINKING UNKNOWN AMOUNT OF VODKA 5 HOURS AGO. PER EMS PATIENTS HEART RATE WAS IN THE "140S-150S" ON SCENE. UPON ARRIVAL PATIENTS HEART RATE IS 141, DENIES CP, SOB, COUGH. UPON ARRIVAL PATIENT PLACED IN GOWN, ON BEDSIDE [employer] CRM DEVELOPER. DR. FLORES AWARE OF PATIENT.
[2022-01-06] MEDS ORDERED: KETOROLAC 30 MG/ML VIAL IM ONE (13:05)
[2022-01-06] MEDS ORDERED: LORazepam 1 MG TAB PO ONE (13:05)
[2022-01-06 14:55] VITALS: BP 121/85
--- NOTE | 2022-01-06 14:55 | NUR ---
Patient discharged with v/s stable. Written and verbal after care instructions ABOUT STIMULANT USE DISORDER- METH AND STRESS given and explained. Patient verbalized understanding. Ambulatory with steady gait. All questions addressed prior to discharge. Advised to follow up with PMD.
== END 2022-01-06 14:55 | disposition home or self-care (01) ==
LOC: MED 12:01
DX: F15.10 Other stimulant abuse, uncomplicated (principal); F41.9 Anxiety disorder, unspecified; F43.9 Reaction to severe stress, unspecified; I11.0 Hypertensive heart disease with heart failure; I50.9 Heart failure, unspecified; K21.9 Gastro-esophageal reflux disease without esophagitis; F17.210 Nicotine dependence, cigarettes, uncomplicated; Z86.718 Personal history of other venous thrombosis and embolism; F10.10 Alcohol abuse, uncomplicated; Z86.79 Personal history of other diseases of the circulatory system; Z86.69 Personal history of other diseases of the nervous system and sense organs; Z98.890 Other specified postprocedural states; Z79.1 Long term (current) use of non-steroidal anti-inflammatories (NSAID); Z79.2 Long term (current) use of antibiotics
CPT/HCPCS: 81002; 81025; 93005; 96372; 99283; J1885

== ENCOUNTER 2022-01-17 14:10 | Emergency (ER) | payer OTHER ==
[~2022-01-17] VITALS: Ht 154.9 cm; Wt 43.1 kg
[2022-01-17 14:14] VITALS: BP 131/80
--- NOTE | 2022-01-17 14:34 | NUR ---
36 Y/O FEMALE BIBA FROM THE STREETS C/O OF SOB, EMS STATED THAT SHE HAD BEEN WALKING AROUND 30MINUTES OUTSIDE. SATTING AT 98% ON ROOM AIR, RESPIRATIONS EVEN AND UNLABORED. HR ELEVATED AT 125HR, NOTED DILATED PUPILS, PT STATED SHE "TOOK ALL THAT SHIT" SNORTING UP METH AND COCAINE. WHEN ASKED HOW MUCH SHE TOOK SHE SAID "JUST A LITTLE BIT". NOTED WITH PICC LINE IN THE RIGHT FOREARM, PT STATED THAT SHE LEFT AMA FROM [facility] A FEW DAYS AGO. WHEN ASKED WHY SHE HAD A PICC LINE, STATED THAT SHE HAD AN INFECTED CYST IN HER SPINE AND WAS GETTING ANTIBIOTICS. NKA PMH; CHF, HTN
[2022-01-17] MEDS ORDERED: FUROSEMIDE 40 MG/4 ML VIAL IVP ONE (15:10)
--- NOTE | 2022-01-17 15:40 | NUR ---
NURSE WAS PREPARING LASIX, PT PULLED OUT PICC LINE. NO BLEEDING NOTED, TIP COULD BE VISUALIZED, VANE TONG MADE AWARE,L STATED NOT TO PUT IN ANOTHER LINE AND TO NOT GIVE THE LASIX. PT STATED THEY DID IT CAUSE IT WAS "ANNOYING"
--- NOTE | 2022-01-17 16:19 | NUR ---
Patient discharged with v/s stable. Written and verbal after care instructions given and explained. Patient verbalized understanding. Ambulatory with steady gait. All questions addressed prior to discharge. Advised to follow up with PMD. SECURITY CALLED, PT LEFT WITH FOOD AND LEFT WITHOUT DISCHARGE INSTRUCTIONS
== END 2022-01-17 16:19 | disposition home or self-care (01) ==
LOC: MED 14:10
DX: I11.0 Hypertensive heart disease with heart failure (principal); I50.9 Heart failure, unspecified; R06.02 Shortness of breath; K21.9 Gastro-esophageal reflux disease without esophagitis; F17.200 Nicotine dependence, unspecified, uncomplicated; F15.90 Other stimulant use, unspecified, uncomplicated; Z98.890 Other specified postprocedural states; Z79.1 Long term (current) use of non-steroidal anti-inflammatories (NSAID); Z79.2 Long term (current) use of antibiotics
CPT/HCPCS: 71045; 99283; J1940

== ENCOUNTER 2022-01-17 17:06 | Emergency (ER) | payer OTHER ==
[~2022-01-17] VITALS: Ht 154.9 cm; Wt 43.1 kg
[2022-01-17 17:07] VITALS: BP 144/94
--- NOTE | 2022-01-17 19:07 | NUR ---
PATIENT LEFT WITHOUT BEING SEEN BY DR. joseph. NO FURTHER CARE PROVIDED FOR PATIENT.
== END 2022-01-17 19:07 | disposition left against medical advice (07) ==
LOC: MED 17:06
DX: R06.02 Shortness of breath (principal); Z53.21 Procedure and treatment not carried out due to patient leaving prior to being seen by health care provider; I11.0 Hypertensive heart disease with heart failure; I50.9 Heart failure, unspecified

== ENCOUNTER 2023-01-09 18:08 | Inpatient (IN) | payer OTHER ==
[~2023-01-09] VITALS: Ht 162.6 cm; Wt 59.0 kg
[~2023-01-09 18:08] MED LIST changes: -CEPH-588 PO; +CHLO5CAP86 PO; +FURO-572 PO; -IBUP-2213 PO; +LISI2.5T12 PO; +METO25TE2 PO; -SULF-59 PO
[2023-01-09 18:19] VITALS: BP 112/77
[2023-01-09] MEDS ORDERED: NACL 0.9% 1,000 ML IV ONE ×2 (18:40→18:45)
--- NOTE | 2023-01-09 19:08 | NUR ---
PT PLACED IN BED 08
[2023-01-09] MEDS ORDERED: KETOROLAC 30 MG/ML VIAL IVP ONE (19:20)
[2023-01-09] MEDS ORDERED: ONDANSETRON 4 MG/2 ML VIAL IVP ONE ×2 (19:20→20:30)
[2023-01-09 19:27] LABS: BASOPHILS % (AUTO) 0.2 % (0.0-2.0); HEMATOCRIT 34.8 % (36-48); HEMOGLOBIN 11.5 g/dL (12.0-16.0); LYMPHOCYTES # (AUTO) 0.7 K/uL (2.5-16.5); LYMPHOCYTES % (AUTO) 5.7 % (20.5-51.1); MEAN CORPUSCULAR HEMOGLOBIN 29 pg (27-31); MEAN CORPUSCULAR HGB CONC 33 g/dL (33-37); MEAN CORPUSCULAR VOLUME 86.7 fL (80-94); MONOCYTES % (AUTO) 15.5 % (1.7-9.3); NEUTROPHILS # (AUTO) 10.2 K/uL (1.8-7.7); NEUTROPHILS % (AUTO) 78.6 % (42.2-75.2); PLATELET COUNT (AUTO) 356 K/uL (140-450); RED BLOOD CELL COUNT(AUTO) 4.01 MIL/uL (4.20-5.40); RED CELL DISTRIBUTION WIDTH 16.5 % (11.6-13.7)
--- NOTE | 2023-01-09 19:28 | NUR ---
PT TAKEN TO XRAY
--- NOTE | 2023-01-09 19:44 | NUR ---
Dr. Dempsey examining patient.
[2023-01-09 20:07] LABS: APPEARANCE,URINE CLEAR (CLEAR); BILIRUBIN,URINE NEGATIVE (NEGATIVE); BLOOD, URINE NEGATIVE (NEGATIVE); COLOR,URINE YELLOW (YELLOW); LEUKOCYTE ESTERASE ,URINE NEGATIVE (NEGATIVE); NITRITE, URINE NEGATIVE (NEGATIVE); UGLUCOSE NEGATIVE (NEGATIVE)
--- NOTE | 2023-01-09 20:10 | NUR ---
Urine collected and sent to lab
[2023-01-09 20:18] LABS: BARBITURATE, URINE NEGATIVE ng/ml (NEG <=200); BENZODIAZEPINE, URINE NEGATIVE ng/mL (NEG <=200); CANNABINOID, URINE NEGATIVE ng/mL (NEG <=50); COCAINE, URINE NEGATIVE ng/mL (NEG <=300); OPIATE, URINE NEGATIVE ng/mL (NEG <=2000); PHENCYCLIDINE SCREEN,URINE NEGATIVE ng/mL (NEG <=25)
[2023-01-09] MEDS ORDERED: MORPHINE SULFATE 4 MG/ML SYR IVP ONE (20:30)
[2023-01-09] MEDS ORDERED: ONDANSETRON 4 MG/2 ML VIAL ONE (20:31)
[2023-01-09] MEDS ORDERED: MORPHINE SULFATE 4 MG/ML SYR ONE (20:31)
--- NOTE | 2023-01-09 20:37 | NUR ---
Dr. Dempsey by bedside at this time
[2023-01-09 20:58] LABS: POTASSIUM 2.9 mmol/L (3.5-5.1)
[2023-01-09 20:59] LABS: ALBUMIN 3.1 g/dL (3.4-5.0); ANION GAP 15.4 (8-16); CARBON DIOXIDE 25.5 mmol/L (21-32); CREATININE 0.6 mg/dL (0.6-1.3); TOTAL BILIRUBIN 0.2 mg/dL (0.0-1.0)
[2023-01-09] MEDS ORDERED: KCL 20 MEQ IN 100 mL PREMIX 200 ML IV ONE (21:05)
[2023-01-09] MEDS ORDERED: POTASSIUM CHLORIDE 10 MEQ TABER PO ONE (21:05)
[2023-01-09] MEDS ORDERED: ONDANSETRON 4 MG/2 ML VIAL IVP PRN (21:20)
[2023-01-09] MEDS ORDERED: NACL 0.9% 1,000 ML IV SCH ×2 (21:20→22:05)
[2023-01-09] MEDS ORDERED: KCL 20 MEQ IN 100 mL PREMIX 200 ML IV PRN (21:20)
[2023-01-09] MEDS ORDERED: VANCOMYCIN 1,000 MG in DEXTROSE 5% 250 ML IV ONE (21:20)
[2023-01-09] MEDS ORDERED: HYDROcodone/APAP 5/325 MG 1 TAB TAB PO PRN (21:20)
[2023-01-09] MEDS ORDERED: POTASSIUM CHLORIDE 10 MEQ TABER PO PRN (21:20)
[2023-01-09] MEDS ORDERED: ZOLPIDEM 5 MG TAB PO PRN (21:20)
--- NOTE | 2023-01-09 22:05 | NUR ---
Report given for transfer of care to Sonja YOUNG
--- NOTE | 2023-01-09 22:07 | NUR ---
Orders received from Dr. Ash for BNP and to change NS to 60 ml/hr, and to call him when BNP results. Noted and carried out. HANNAH Casillas made aware during transfer of care.
--- NOTE | 2023-01-09 22:30 | NUR ---
ADMITTED A 37 Y/O PATIENT TO [facility]ST UNIT FROM ER VIA [facility] WITH THE CHIEF COMPLAINTS OF SEVERE LEFT HIP PAIN, DX: INTRACTABLE LEFT HIP PAIN. PATIENT IS AWAKE ALERT ORIENTED X4. NO S/S OF RESPIRATORY DISTRESS. BREATHING REGULAR NON LABORED. TRANSFERRED TO BED SAFELY. MRSA SCREENING DONE. CALL LIGHT WITHIN REACH. BED WHEELS LOCKED IN LOW POSITION.
[2023-01-09] MEDS ORDERED: VANCOMYCIN 1,000 MG VIAL ONE (22:45)
--- NOTE | 2023-01-10 00:30 | NUR ---
PATIENT COMPLAINED OF SEVERE LEFT HIP PAIN , MEDICATED WITH MORPHINE IVP AT 0030. PATIENT CLAIMED THAT MEDICATION IS NOT EFFECTIVE.
[2023-01-10] MEDS: MORPHINE SULFATE 4 MG/ML SYR IVP PRN ×3 (01:19→10:51)
[2023-01-10 01:25] LABS: ANION GAP 13.5 (8-16); CARBON DIOXIDE 24.8 mmol/L (21-32); CREATININE 0.6 mg/dL (0.6-1.3); POTASSIUM 4.3 mmol/L (3.5-5.1)
--- NOTE | 2023-01-10 01:30 | NUR ---
PATIENT REQUESTED A STRONGER PAIN MEDICINE. PLACED A CALL TO DR. TIRADO ELECTRONIC EQUIPMENT REPAIRMEN, AWAITING FOR REPLY.
[2023-01-10] MEDS ORDERED: NACL 0.45% 1,000 ML IV SCH (01:45)
[2023-01-10 04:00] VITALS: BP 145/74
[2023-01-10] MEDS: LORazepam 1 MG TAB PO PRN (05:04)
[2023-01-10] MEDS: HYDROcodone/APAP 10/325 MG 1 TAB TAB PO PRN (06:45)
[2023-01-10 06:47] LABS: BASOPHILS % (AUTO) 0.1 % (0.0-2.0); HEMATOCRIT 34.5 % (36-48); HEMOGLOBIN 11.5 g/dL (12.0-16.0); LYMPHOCYTES # (AUTO) 0.5 K/uL (2.5-16.5); LYMPHOCYTES % (AUTO) 3.6 % (20.5-51.1); MEAN CORPUSCULAR HEMOGLOBIN 29 pg (27-31); MEAN CORPUSCULAR HGB CONC 33 g/dL (33-37); MEAN CORPUSCULAR VOLUME 86.5 fL (80-94); MONOCYTES # (AUTO) 1.8 K/uL (0.8-1.0); MONOCYTES % (AUTO) 12.2 % (1.7-9.3); NEUTROPHILS # (AUTO) 12.2 K/uL (1.8-7.7); NEUTROPHILS % (AUTO) 84.1 % (42.2-75.2); PLATELET COUNT (AUTO) 334 K/uL (140-450); RED BLOOD CELL COUNT(AUTO) 3.99 MIL/uL (4.20-5.40); RED CELL DISTRIBUTION WIDTH 16.8 % (11.6-13.7); WHITE BLOOD COUNT (AUTO) 14.5 K/uL (4.8-10.8)
[2023-01-10 07:04] LABS: ANION GAP 12.9 (8-16); CARBON DIOXIDE 24.1 mmol/L (21-32); CREATININE 0.6 mg/dL (0.6-1.3)
--- NOTE | 2023-01-10 07:26 | NUR ---
GAVE BEDSIDE REPORT TO AM NURSE FOR CONTINUITY OF CARE,
[2023-01-10 08:00] VITALS: BP 159/96
[2023-01-10] MEDS: DOCUSATE SODIUM 100 MG GELCAP PO SCH (08:25)
[2023-01-10] MEDS ORDERED: INSULIN LISPRO SLIDING SCALE 100 UNITS/ML VIAL SUBQ PRN (12:00)
[2023-01-10] MEDS ORDERED: DEXTROSE 50% 50 ML SYR IVP PRN (12:00)
[2023-01-10] MEDS ORDERED: MAG SULF 2000 MG/WATER PREMIX 50 ML IV SCH (12:30)
[2023-01-10] MEDS: NACL 0.9% 1,000 ML IV SCH (14:59)
[2023-01-10 16:00] VITALS: BP 161/105
[2023-01-10] MEDS: KETOROLAC 15 MG/ML VIAL IVP SCH ×2 (17:00→21:06)
[2023-01-10] MEDS: BLOOD GLUCOSE MONITORING 1 DEV DEV FS SCH ×2 (17:01→21:06)
[2023-01-10] MEDS ORDERED: hydrALAZINE 25 MG TAB PO PRN (18:10)
--- NOTE | 2023-01-10 19:27 | NUR ---
ENDORSED PT TO HOTEL ASSOCIATE NURSE FOR CONTINUITY OF CARE. PT IS AWAKE AND NO SIGNS OF DISTRESS, CALL LIGHT WITHIN REACH. MNURUM
--- NOTE | 2023-01-10 19:40 | NUR ---
STARTED A NEW IV TO RIGHT HAND WITH GOOD BACK FLOW OF BLOOD.
[2023-01-10 20:00] VITALS: BP 130/82
--- NOTE | 2023-01-10 21:06 | NUR ---
ADMINISTERED ALL SCHEDULED MEDICATIONS.
[2023-01-10 22:37] LABS: ANION GAP 11.9 (8-16); CARBON DIOXIDE 24.5 mmol/L (21-32); CREATININE 0.6 mg/dL (0.6-1.3); POTASSIUM 3.4 mmol/L (3.5-5.1)
[2023-01-11] MEDS: KETOROLAC 15 MG/ML VIAL IVP SCH ×5 (00:32→23:40)
[2023-01-11] MEDS: NACL 0.9% 1,000 ML IV SCH (00:55)
[2023-01-11] MEDS: MORPHINE SULFATE 4 MG/ML SYR IVP PRN ×2 (02:07→08:53)
--- NOTE | 2023-01-11 02:07 | NUR ---
PATIENT COMPLAINED OF SEVERE LEFT HIP PAIN, MEDICATED WITH MORPHINE IVP.
[2023-01-11] MEDS ORDERED: NACL 3% 500 ML IV ONE ×2 (02:40→13:30)
[2023-01-11 04:00] VITALS: BP 137/84
[2023-01-11] MEDS: BLOOD GLUCOSE MONITORING 1 DEV DEV FS SCH ×4 (06:53→21:40)
[2023-01-11 07:12] LABS: BASOPHILS % (AUTO) 0.2 % (0.0-2.0); EOSINOPHILS % (AUTO) 0.1 % (0.0-4.0); HEMATOCRIT 34.2 % (36-48); HEMOGLOBIN 11.4 g/dL (12.0-16.0); LYMPHOCYTES # (AUTO) 0.6 K/uL (2.5-16.5); LYMPHOCYTES % (AUTO) 5.7 % (20.5-51.1); MEAN CORPUSCULAR HEMOGLOBIN 29 pg (27-31); MEAN CORPUSCULAR HGB CONC 33 g/dL (33-37); MEAN CORPUSCULAR VOLUME 86.3 fL (80-94); MONOCYTES # (AUTO) 0.8 K/uL (0.8-1.0); MONOCYTES % (AUTO) 7.7 % (1.7-9.3); NEUTROPHILS # (AUTO) 9.2 K/uL (1.8-7.7); NEUTROPHILS % (AUTO) 86.3 % (42.2-75.2); PLATELET COUNT (AUTO) 325 K/uL (140-450); RED BLOOD CELL COUNT(AUTO) 3.97 MIL/uL (4.20-5.40); RED CELL DISTRIBUTION WIDTH 16.8 % (11.6-13.7); WHITE BLOOD COUNT (AUTO) 10.6 K/uL (4.8-10.8)
[2023-01-11 07:16] LABS: ANION GAP 10.2 (8-16); CARBON DIOXIDE 26.3 mmol/L (21-32); CREATININE 0.7 mg/dL (0.6-1.3); POTASSIUM 3.5 mmol/L (3.5-5.1)
--- NOTE | 2023-01-11 07:23 | NUR ---
GAVE REPORT TO AM NURSE FOR CONTINUITY OF CARE.
--- NOTE | 2023-01-11 07:24 | NUR ---
RECEIVED REPORT FROM CANE FURNITURE MAKER NURSE FOR CONTINUITY OF CARE. PT IS ASLEEP AND AWAKEN BY NAME, NO SIGNS OF DISTRESS. CALL LIGHT WITHIN REACH. MNURUM
[2023-01-11 07:30] LABS: FREE T4 (FREE THYROXINE) 1.26 ng/dL (0.76-1.46); THYROID STIMULATING HORMONE 2.11 uIU/mL (0.34-3.74)
[2023-01-11] MEDS: DOCUSATE SODIUM 100 MG GELCAP PO SCH (08:23)
[2023-01-11] MEDS: METOPROLOL SUCCINATE 50 MG TABER PO SCH (08:24)
[2023-01-11] MEDS: FUROSEMIDE 20 MG TAB PO SCH (08:26)
[2023-01-11] MEDS: lisinopriL 5 MG TAB PO SCH (08:26)
--- NOTE | 2023-01-11 08:54 | NUR ---
PATIENT HAS BEEN SCREENED AND CATEGORIZED LOW NUTRITION RISK. PATIENT WILL BE SEEN WITHIN 7 DAYS OF ADMISSION. 01/16/[address]
[2023-01-11] MEDS: MAG SULF 2000 MG/WATER PREMIX 50 ML IV PRN (09:00)
[2023-01-11 10:03] LABS: POTASSIUM,URINE RANDOM 28 mmol/L (12-75); URINE SODIUM, RANDOM 138 mmol/l (40-220)
--- NOTE | 2023-01-11 10:48 | NUR ---
DC PLANNIN YRS OLD FEMALE PATIENT WAS ADMITTED FROM HOME WITH A DX OF INTRACTABLE HIP PAIN. PATIENT HAS A HX OF HTN, CHF, AND METH ABUSE. 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 CT PELVIS RECOMMENDED MRI. C DISCUSSED WITH DIRECTOR IMMUNOLOGY AT [facility]. PER MRI QUESTIONER PATIENT HAS SEVERAL HARDWIRES AND UNABLE TO PERFORM MR. ADMINISTERED IVF, IV ABX NAFCILLIN AND CONTINUED HOME MEDS. CONSULTED WITH OPERATOR WEAPON LOCATING RADAR AND CARDIO. DC PLAN TO GO HOME WHEN STABLE. CM TO FOLLOW Addendum: 01/17/23 at 1147 by Carolina Grant RN DC PLANNING: ORTHOPEDICS SURGEON DR THONG KAHN ATTEMPTED BED SIDE ASPIRATION OF THE LEFT HIM. HOWEVER FAILED ASPIRATION AND AND RECOMMENDED MRI WELL IR GUIDED ASPIRATION UNDER FLUOROSCOPY. ORDERED IR EVALUATION .DC PLAN AWAITING FOR IR EVALUATION. CONTINUED NAFCILLIN IV ABX AND PAIN MEDS. CM TO FOLLOW
[2023-01-11] MEDS ORDERED: MAG SULF 2000 MG/WATER PREMIX 50 ML IV SCH (11:00)
[2023-01-11] MEDS: ACETAMINOPHEN 325 MG TAB PO PRN (11:52)
--- NOTE | 2023-01-11 11:52 | NUR ---
PT'S TEMP IS 102, GAVE TYLENOL PRN. COOLING MEASURE DONE. WILL CONTINUE TO MONITOR.MONICA
--- NOTE | 2023-01-11 14:00 | NUR ---
AT 1300 PT'S TEMP IS 100, CONTINUED COOLING MEASURES. AT 1400 PT'S TEMP WAS DOWN TO 98.7. JEFFREYUM
[2023-01-11 18:41] LABS: ANION GAP 10.1 (8-16); CARBON DIOXIDE 28.1 mmol/L (21-32); CREATININE 0.5 mg/dL (0.6-1.3); POTASSIUM 4.2 mmol/L (3.5-5.1)
[2023-01-11 20:00] VITALS: BP 116/79
--- NOTE | 2023-01-11 21:25 | NUR ---
DUE MEDS GIVEN. PATIENT IS AWAKE ALERT VERBALLY RESPONSIVE. NO SOB NOTED. IVF NS 3% INFUSING AT 30 ML/HR. CALL LIGHT WITHIN REACH. SAFETY MEASURES IN PLACE. NEEDS ATTENDED TO. WILL CONTINUE TO MONITOR.
[2023-01-11] MEDS: HYDROcodone/APAP 10/325 MG 1 TAB TAB PO PRN (22:04)
[2023-01-12 00:09] LABS: ANION GAP 10.2 (8-16); CARBON DIOXIDE 26.6 mmol/L (21-32); CREATININE 0.6 mg/dL (0.6-1.3); POTASSIUM 3.8 mmol/L (3.5-5.1)
[2023-01-12] MEDS: MORPHINE SULFATE 4 MG/ML SYR IVP PRN (01:59)
[2023-01-12] MEDS ORDERED: NACL 3% 500 ML IV STA (03:59)
[2023-01-12 04:00] VITALS: BP 138/91
[2023-01-12] MEDS: ACETAMINOPHEN 325 MG TAB PO PRN (04:41)
[2023-01-12] MEDS: KETOROLAC 15 MG/ML VIAL IVP SCH ×4 (06:37→23:55)
[2023-01-12] MEDS: BLOOD GLUCOSE MONITORING 1 DEV DEV FS SCH ×4 (06:37→20:06)
[2023-01-12 06:55] LABS: BASOPHILS % (AUTO) 0.2 % (0.0-2.0); EOSINOPHILS % (AUTO) 0.2 % (0.0-4.0); HEMATOCRIT 28.2 % (36-48); HEMOGLOBIN 9.5 g/dL (12.0-16.0); LYMPHOCYTES # (AUTO) 0.6 K/uL (2.5-16.5); LYMPHOCYTES % (AUTO) 6.2 % (20.5-51.1); MEAN CORPUSCULAR HEMOGLOBIN 29 pg (27-31); MEAN CORPUSCULAR HGB CONC 34 g/dL (33-37); MEAN CORPUSCULAR VOLUME 86.5 fL (80-94); MONOCYTES # (AUTO) 0.8 K/uL (0.8-1.0); MONOCYTES % (AUTO) 8.6 % (1.7-9.3); NEUTROPHILS % (AUTO) 84.8 % (42.2-75.2); PLATELET COUNT (AUTO) 319 K/uL (140-450); RED BLOOD CELL COUNT(AUTO) 3.26 MIL/uL (4.20-5.40); RED CELL DISTRIBUTION WIDTH 16.7 % (11.6-13.7); WHITE BLOOD COUNT (AUTO) 9.4 K/uL (4.8-10.8)
[2023-01-12 07:04] LABS: ANION GAP 11.7 (8-16); CARBON DIOXIDE 23.7 mmol/L (21-32); CREATININE 0.6 mg/dL (0.6-1.3); POTASSIUM 3.4 mmol/L (3.5-5.1)
--- NOTE | 2023-01-12 07:20 | NUR ---
RECEIVED REPORT FROM DRILLING SUPERVISOR NURSE, DENG, FOR CONTINUITY OF CARE. PT IN BED WITH BLANKET OVER HER HEAD. STATES "I LIKE MY HEAD COVERED, IT KEEPS THE LIGHT FROM HITTING MY EYES". RESPIRATIONS ARE EVEN AND UNLABORED, ON ROOM AIR. PT IS ALERT AND ORIENTED X4, ABLE TO FOLLOW COMMANDS, ABLE TO VERBALIZE NEEDS. PT CC SEVERE L HIP PAIN, FOR THIS REASON, PT STATES SHE IS BED BOUND. PT IS INCONTINENT OF BOWEL AND BLADDER, STATES "ILL LET YOU KNOW WHEN I NEED TO GO". ABD IS NONTENDER, NONDISTENDED WITH BOWEL SOUNDS NOTED. PT STATES HER LAST BOWEL MOVEMENT WAS THIS MORNING. CALL LIGHT WITHIN REACH. ALL SAFETY MEASURES IN PLACE.
[2023-01-12 08:00] VITALS: BP 114/68
[2023-01-12] MEDS: DOCUSATE SODIUM 100 MG GELCAP PO SCH (09:56)
[2023-01-12] MEDS: lisinopriL 5 MG TAB PO SCH (09:56)
[2023-01-12] MEDS: METOPROLOL SUCCINATE 50 MG TABER PO SCH (09:57)
[2023-01-12] MEDS: FUROSEMIDE 20 MG TAB PO SCH (09:57)
--- NOTE | 2023-01-12 09:57 | NUR ---
ADMINISTERED ALL SCHEDULED MEDICATIONS. EDUCATED PT ON MEDS ADMINISTERED. PT VERBALIZED UNDERSTANDING.
[2023-01-12] MEDS: HYDROcodone/APAP 10/325 MG 1 TAB TAB PO PRN ×2 (10:10→20:07)
--- NOTE | 2023-01-12 10:12 | NUR ---
PT COMPLAINING OF PAIN. ASSESSED PAIN LEVEL. MEDICATED.
--- NOTE | 2023-01-12 11:12 | NUR ---
WENT TO RE-ASSESS PT PAIN LEVEL. PT RESTING AT THIS TIME. RESPIRATIONS ARE EVEN AND UNLABORED.
[2023-01-12] MEDS ORDERED: MAG SULF 2000 MG/WATER PREMIX 50 ML IV SCH (13:00)
--- NOTE | 2023-01-12 13:14 | NUR ---
SCHEDULED MEDICATIONS GIVEN. WILL CONTINUE TO MONITOR.
[2023-01-12 14:01] LABS: ANION GAP 9.3 (8-16); CARBON DIOXIDE 26.8 mmol/L (21-32); CREATININE 0.6 mg/dL (0.6-1.3); POTASSIUM 3.1 mmol/L (3.5-5.1)
--- NOTE | 2023-01-12 14:35 | NUR ---
DR FLORENCE ORDERED MRI FOR PT. DID MRI QUESTIONAIRE, PT STATED SHE HAS METAL PLATES TO HIP AND BACK. DR FLORENCE MADE AWARE. WILL CANCEL MRI.
[2023-01-12] MEDS ORDERED: hydrALAZINE 25 MG TAB PO PRN (15:57)
[2023-01-12 16:00] VITALS: BP 119/79
[2023-01-12] MEDS: SODIUM CHLORIDE 1 GM TAB PO SCH ×2 (16:04→17:42)
--- NOTE | 2023-01-12 18:09 | NUR ---
COMPLAINS OF NAUSEA, ZOFRAN PRN GIVEN. OTHER SCHEDULED IV MEDS DUE GIVEN.
--- NOTE | 2023-01-12 19:09 | NUR ---
ENDORSED PT TO GREY ROLL MAN NURSE FOR CONTINUITY OF CARE. PT IS STABLE.
[2023-01-12 20:00] VITALS: BP 127/73
--- NOTE | 2023-01-12 20:00 | NUR ---
RECEIVED IN BED ASSESSMENT COMPLETED PLAN OF CARE REVIEWED PT ENDORSES SHE IS IN PAIN AND ANXIOUS WILL MEDICATE ORDERED ADVISED TO USE CALL LIGHT FOR ASSISSTANCE CALL LIGHT IN REACH WILL CONTINUE TO MONITOR AND ASSESS
[2023-01-12] MEDS: LORazepam 1 MG TAB PO PRN (20:06)
[2023-01-12] MEDS ORDERED: LINEZOLID 600 MG TAB PO SCH (21:00)
[2023-01-12 23:16] LABS: ANION GAP 10.6 (8-16); CARBON DIOXIDE 24.8 mmol/L (21-32); CREATININE 0.6 mg/dL (0.6-1.3); POTASSIUM 3.4 mmol/L (3.5-5.1)
--- NOTE | 2023-01-13 00:05 | NUR ---
PT ASSISSTED TO BR BM X1 AND PT ENDORSES MENSTRUAL STARTED PROVIDED WIPES AND PADS AND ASSISTED BACK TO BED WILL CONTINUE TO MONITOR AND ASSESS
--- NOTE | 2023-01-13 02:30 | NUR ---
WENT TO PT ROOM AND NOTED A STRONG SMOKE SMELL PT ROOMATE ENDORSED PT WAS SMOKING AND WHATEVER PT WAS SMOKING MADE BED A VOMIT THE SMELL OF SPOKE IS SO STRONG AND CAUSING NURSES TO COUGH PT MADE AWARE SMOKING UNACCEPTABLE SECURITY CALLED AWAITING ON SECURITY ARRIVAL
--- NOTE | 2023-01-13 02:43 | NUR ---
SECURITY CAME TO BEDSIDE AND ENDORSES THE SMELL OF SMOKE SMELLS LIKE METH PT WILLINGLY GAVE BAG TO SECURITY AND SECURITY WILL HOLD BELONGINGS UNTIL DISCHARGE TO PREVENT PT FROM MSMOKING AGAIN WILL NOTIFY
--- NOTE | 2023-01-13 03:13 | NUR ---
MADE AWARE HOUSE SUP NOTIFIED PT CONTINUES TO DENY SMOKING CIGARETTES FRATERNITY ADVISER WERE FOUND IN PT BAG AND A SMOKING PIPE WAS FOUND ON FLOOR AT HEAD OF PT BED BY SECURITY PT MADE AWARE NOTIFIED
[2023-01-13] MEDS: KETOROLAC 15 MG/ML VIAL IVP SCH ×4 (05:43→23:39)
[2023-01-13] MEDS: BLOOD GLUCOSE MONITORING 1 DEV DEV FS SCH ×4 (05:43→20:16)
--- NOTE | 2023-01-13 05:44 | NUR ---
PT IN A DEEP SLEEP TORADOL HELD DUE TO NO COMPLAINTS OF PAIN AND PT SMOKED DURING SHIFT
[2023-01-13 05:45] VITALS: BP 133/85
[2023-01-13 06:46] LABS: BASOPHILS % (AUTO) 0.1 % (0.0-2.0); EOSINOPHILS % (AUTO) 0.3 % (0.0-4.0); HEMATOCRIT 26.5 % (36-48); HEMOGLOBIN 8.8 g/dL (12.0-16.0); LYMPHOCYTES # (AUTO) 0.7 K/uL (2.5-16.5); LYMPHOCYTES % (AUTO) 7.4 % (20.5-51.1); MEAN CORPUSCULAR HEMOGLOBIN 29 pg (27-31); MEAN CORPUSCULAR HGB CONC 33 g/dL (33-37); MEAN CORPUSCULAR VOLUME 86.4 fL (80-94); MONOCYTES % (AUTO) 10.1 % (1.7-9.3); NEUTROPHILS # (AUTO) 8.2 K/uL (1.8-7.7); NEUTROPHILS % (AUTO) 82.1 % (42.2-75.2); PLATELET COUNT (AUTO) 306 K/uL (140-450); RED BLOOD CELL COUNT(AUTO) 3.07 MIL/uL (4.20-5.40)
--- NOTE | 2023-01-13 06:46 | NUR ---
WILL ENDORSE CARE TO ONCOMING LICENSED NURSE MD AWARE OF PT SMOKING AND WILL MOVE FORWARD WITH PLAN OF CARE TODAY
--- NOTE | 2023-01-13 07:00 | NUR ---
RECEIVED PT FROM RECREATION ACTIVITIES COORDINATOR NURSE FOR CONTINUITY OF CARE. PT IS SLEEPING IN BED. VISIBLE CHEST RISE/FALL. RESPIRATIONS EVEN AND UNLABORED ON RA. SKIN WARM AND DRY. IV ON R FA 20G. NO DISTRESS NOTED. CALL LIGHT WITHIN REACH. ALL SAFETY PRECAUTIONS IN PLACE.
[2023-01-13 07:06] LABS: ANION GAP 12.2 (8-16); CARBON DIOXIDE 23.3 mmol/L (21-32); CREATININE 0.6 mg/dL (0.6-1.3); POTASSIUM 3.5 mmol/L (3.5-5.1)
[2023-01-13 08:00] VITALS: BP 143/85
--- NOTE | 2023-01-13 08:00 | NUR ---
Patient's Plan of Care was discussed and reviewed with QUALITY ASSURANCE ADVISOR:
[2023-01-13] MEDS: METOPROLOL SUCCINATE 50 MG TABER PO SCH (08:52)
[2023-01-13] MEDS: FUROSEMIDE 20 MG TAB PO SCH (08:52)
[2023-01-13] MEDS: DOCUSATE SODIUM 100 MG GELCAP PO SCH (08:53)
[2023-01-13] MEDS: levoFLOXacin 500 MG TAB PO SCH (08:53)
[2023-01-13] MEDS: SODIUM CHLORIDE 1 GM TAB PO SCH ×3 (08:54→17:58)
[2023-01-13] MEDS: HYDROcodone/APAP 10/325 MG 1 TAB TAB PO PRN (08:54)
[2023-01-13] MEDS: lisinopriL 5 MG TAB PO SCH (08:54)
[2023-01-13] MEDS: MAG SULF 2000 MG/WATER PREMIX 50 ML IV PRN (13:15)
[2023-01-13 16:00] VITALS: BP 141/83
--- NOTE | 2023-01-13 19:27 | NUR ---
ENDORSED PT TO DEPUTY BRAND INSPECTOR NURSE FOR CONTINUITY OF CARE. PT IS STABLE.
--- NOTE | 2023-01-13 19:44 | NUR ---
RECEIVED REPORT FROM DAY SHIFT NURSE FOR CONTINUITY OF CARE. PT IS AWAKE, ALERT AND ORIENTED X4. ON ROOM AIR BUT DOES STATE SHE IS HAVING MINOR SOB. NO PAIN STATED AT THIS TIME. PT IS ON BED REST USING A BED CHOW, BUT CAN AMBULATE WITH ASSISTANCE. IV SITE LOCATED AT RIGHT HAND 22 GAUGE, INTACT AND PATENT. OVERALL SKIN INTACT. CALL LIGHT WITHIN REACH, SAFETY MEASURES IN PLACE, WILL MONITOR FREQUENTLY THROUGHOUT SHIFT.
[2023-01-13 20:00] VITALS: BP 147/86
--- NOTE | 2023-01-13 20:00 | NUR ---
Patient's Plan of Care was discussed and reviewed with MAURO: PARADISE
--- NOTE | 2023-01-13 20:20 | NUR ---
BLOOD GLUCOSE LEVEL OF 11O, NO INSULIN COVERAGE NEEDED AT THIS TIME.
[2023-01-13] MEDS: MORPHINE SULFATE 4 MG/ML SYR IVP PRN (21:04)
--- NOTE | 2023-01-13 21:05 | NUR ---
PT REPORTS PAIN LEVEL OF 10/10. STATES, "PAIN IS ALL OVER MY BODY". POC WAS DISCUSSED AND MORPHINE IVP WAS ADMINISTERED TO PT BY RN: MOLLY, PT TOLERATED WELL. NO OTHER SIGNS OF DISTRESS NOTED, WILL CONTINUE TO MONITOR.
--- NOTE | 2023-01-13 23:15 | NUR ---
PT ASLEEP AT THIS TIME. RESPIRATIONS EVEN AND UNLABORED. FLACC SCORE = 0 WILL CONTINUE MONITORING THE PT.
[2023-01-14] MEDS: LORazepam 1 MG TAB PO PRN ×2 (03:50→23:18)
[2023-01-14 04:00] VITALS: BP 138/95
[2023-01-14] MEDS: MORPHINE SULFATE 4 MG/ML SYR IVP PRN ×2 (04:09→21:28)
--- NOTE | 2023-01-14 04:11 | NUR ---
PT STATES SHE IS VERY ANXIOUS. APPEARS TO BE SHAKING PROFUSELY. HEART RATE OF 126, BP 138/95. PT IS A HISTORIAN OF METH ABUSE, LAST TIME SHE SMOKED METH WAS 01/12. ADMINISTERED ATIVAN PO PRN FOR ANXIETY. PT TOLERATED WELL. WILL CONTINUE TO MONITOR.
[2023-01-14] MEDS: KETOROLAC 15 MG/ML VIAL IVP SCH ×2 (05:46→12:22)
[2023-01-14] MEDS: BLOOD GLUCOSE MONITORING 1 DEV DEV FS SCH ×4 (06:49→20:04)
--- NOTE | 2023-01-14 07:04 | NUR ---
PT LAST BLOOD SUGAR = 100. NO ACUTE EVENTS OVERNIGHT, PATIENT SLEPT WELL. FLUID INTAKE OF 420 DURING SHIFT. WILL ENDORSE TO DAY SHIFT NURSE FOR CONTINUITY OF CARE
--- NOTE | 2023-01-14 07:05 | NUR ---
RECEIVED PT FROM PERFORATOR TYPIST NURSE FOR CONTINUITY OF CARE. PT IS SLEEPING. VISIBLE CHEST RISE/FALL. RESPIRATIONS EVEN AND UNLABORED ON RA. SKIN WARM AND DRY. IV ON R HAND 22G. CALL LIGHT WITHIN REACH. ALL SAFETY PRECAUTIONS IN PLACE.
[2023-01-14 07:07] LABS: ANION GAP 12.3 (8-16); CARBON DIOXIDE 26.3 mmol/L (21-32); CREATININE 0.5 mg/dL (0.6-1.3); POTASSIUM 3.6 mmol/L (3.5-5.1)
[2023-01-14 07:24] LABS: BASOPHILS % (AUTO) 0.1 % (0.0-2.0); EOSINOPHILS % (AUTO) 0.3 % (0.0-4.0); HEMATOCRIT 28.1 % (36-48); HEMOGLOBIN 9.3 g/dL (12.0-16.0); LYMPHOCYTES # (AUTO) 1.2 K/uL (2.5-16.5); LYMPHOCYTES % (AUTO) 10.3 % (20.5-51.1); MEAN CORPUSCULAR HEMOGLOBIN 28 pg (27-31); MEAN CORPUSCULAR HGB CONC 33 g/dL (33-37); MEAN CORPUSCULAR VOLUME 86.2 fL (80-94); MONOCYTES # (AUTO) 1.4 K/uL (0.8-1.0); MONOCYTES % (AUTO) 11.6 % (1.7-9.3); NEUTROPHILS # (AUTO) 9.2 K/uL (1.8-7.7); NEUTROPHILS % (AUTO) 77.7 % (42.2-75.2); PLATELET COUNT (AUTO) 407 K/uL (140-450); RED BLOOD CELL COUNT(AUTO) 3.26 MIL/uL (4.20-5.40); WHITE BLOOD COUNT (AUTO) 11.9 K/uL (4.8-10.8)
[2023-01-14 08:00] VITALS: BP 137/87
[2023-01-14] MEDS: METOPROLOL SUCCINATE 50 MG TABER PO SCH (09:31)
[2023-01-14] MEDS: FUROSEMIDE 20 MG TAB PO SCH (09:32)
[2023-01-14] MEDS: levoFLOXacin 500 MG TAB PO SCH (09:32)
[2023-01-14] MEDS: DOCUSATE SODIUM 100 MG GELCAP PO SCH (09:33)
[2023-01-14] MEDS: SODIUM CHLORIDE 1 GM TAB PO SCH ×3 (09:33→18:05)
[2023-01-14] MEDS: lisinopriL 5 MG TAB PO SCH (09:34)
--- NOTE | 2023-01-14 15:21 | NUR ---
01/14/23 RD INITIAL ASSESSMENT COMPLETED PLEASE REFER TO NUTRITION ASSESSMENT UNDER CARE ACTIVITY FOR ESTIMATED NUTRITIONAL NEEDS. 1. CONTINUE [facility] DIET TOLERATED 2. CONTINUE WITH FLUID RESTRICTION OF 1200ML/DAY PER MD 3. RD TO FOLLOW-UP 3-5 DAYS, MODERATE RISK CHEL REEVES RD
[2023-01-14 16:00] VITALS: BP 120/80
--- NOTE | 2023-01-14 19:00 | NUR ---
ENDORSED PT TO BEER MERCHANT NURSE FOR CONTINUITY OF CARE. PT IS STABLE.
[2023-01-14 20:00] VITALS: BP 136/95
[2023-01-14] MEDS: NAFCILLIN 2,000 MG in DEXTROSE 5% 100 ML IV SCH (20:00)
--- NOTE | 2023-01-14 20:00 | NUR ---
BLOOD GLUCOSE LEVEL OF 134. NO COVERAGE NEEDED. ALL OTHER SCHEDULED MEDICATONS ADMINISTERED WITH NO COMPLICATIONS. WILL CONTINUE MONITORING THE PT.
--- NOTE | 2023-01-14 20:45 | NUR ---
PT MAGNESIUM LEVEL OF 1.5. POC DISCUSSED AND MAG SULF 2000 MG/ STERILE WATER PREMIX 50 ML @ 25ML/HR WAS ADMINISTERED BY REGISTRY NURSE: RYAN.
--- NOTE | 2023-01-14 21:00 | NUR ---
MAGNESIUM 2 GRAMS BEGAN VIA IVPB @ 25ML/HR
--- NOTE | 2023-01-14 21:28 | NUR ---
MORPHINE 4 MG IVP FOR STATED LEFT SIDED PAIN OVER GENERAL BODY RATE 05/24.
--- NOTE | 2023-01-14 21:31 | NUR ---
POC DISCUSSED WITH REGISTRY NURSE: RYAN. MORPHINE ADMINISTERED TO PT FOR PAIN LEVEL OF 10/10. PT TOLERATED WELL. WILL CONTINUE TO MONITOR.
--- NOTE | 2023-01-14 21:58 | NUR ---
MORPHINE 4MG EFFECTIVE IN PAIN RELIEF. PT SNORING, APPEARS RESTING WELL. NO FURTHER C/O AT THIS TIME.
--- NOTE | 2023-01-14 22:16 | NUR ---
RECEIVED REPORT FROM DAY SHIFT NURSE FOR CONTINUITY OF CARE. PT IS STABLE AT THIS TIME, REQUESTING PAIN MEDICATION FOR 05/24 PAIN Addendum: 01/14/23 at 2224 by Arsh Reed LVN LVN FOR 1901
--- NOTE | 2023-01-14 23:10 | NUR ---
MAG 2GRAM IVPB COMPLETED. PT TOLERATED WELL.
--- NOTE | 2023-01-14 23:19 | NUR ---
PT STATES FEELING ANXIOUS. BLOOD PRESSURE = 124/87, HEART RATE = 113. ATIVAN PO ADMINISTERED PRN PER MD ORDER. PT TOLERATED WELL.
[2023-01-15] MEDS: NAFCILLIN 2,000 MG in DEXTROSE 5% 100 ML IV SCH ×7 (00:16→23:28)
[2023-01-15] MEDS: HYDROcodone/APAP 10/325 MG 1 TAB TAB PO PRN ×3 (01:24→20:06)
--- NOTE | 2023-01-15 01:26 | NUR ---
PT STILL COMPLAINING OF A PAIN LEVEL OF 6/10 IN HIP AREA. ADMINISTERED NORCO 10/325 FOR MODERATE PAIN. INFORMED PATIENT THAT ANY OTHER PAIN MEDICATION WOULD NOW BE SPACED OUT SO TO NOT OVER MEDICATE. PT UNDERSTOOD. NO OTHER SIGNS OF DISTRESS NOTED. WILL CONTINUE MONITORING THE PT.
[2023-01-15 04:00] VITALS: BP 129/84
[2023-01-15] MEDS: BLOOD GLUCOSE MONITORING 1 DEV DEV FS SCH ×4 (06:31→20:10)
--- NOTE | 2023-01-15 07:00 | NUR ---
RECEIVED REPORT FROM BAR POINTER PARADISE FOR CONTINUITY OF CARE. ASSESSMENT DONE. ALERT AND ORIENTED X4. RESP. EVEN AND UNLABORED. IVF INFUSING WELL. NOT IN ANY DISTRESS NOTED. CALL LIGHT KEPT WITHIN REACH. PT WILL MONITOR CLOSELY.
[2023-01-15 08:00] VITALS: BP 134/90
[2023-01-15] MEDS: MORPHINE SULFATE 4 MG/ML SYR IVP PRN ×3 (09:15→22:50)
[2023-01-15] MEDS: SODIUM CHLORIDE 1 GM TAB PO SCH ×3 (09:35→17:52)
[2023-01-15] MEDS: FUROSEMIDE 20 MG TAB PO SCH (09:35)
[2023-01-15] MEDS: DOCUSATE SODIUM 100 MG GELCAP PO SCH (09:35)
[2023-01-15] MEDS: lisinopriL 5 MG TAB PO SCH (09:36)
[2023-01-15] MEDS: METOPROLOL SUCCINATE 50 MG TABER PO SCH (09:36)
--- NOTE | 2023-01-15 12:35 | NUR ---
BS CHECKED 130. NO INSULIN NEEDED. SODIUM CHLORIDE AND PRN NORCO WAS GIVEN FOR HIP PAIN. TOLERATED WELL.
--- NOTE | 2023-01-15 13:13 | NUR ---
NAFCILLIN IV WAS GIVEN BY FLORENCIO YOUNG. TOLERATED WELL.
--- NOTE | 2023-01-15 17:20 | NUR ---
BS CHECKED 134. NO COVERAGE NEEDED.
--- NOTE | 2023-01-15 17:25 | NUR ---
SEEN BY DR. BENITO, UNABLE TO ASPIRATE FLUIDS.
--- NOTE | 2023-01-15 17:52 | NUR ---
PRN MORPHINE IVP WAS GIVEN BY FLORENCIO RN FOR HIP PAIN. TOLERATED WELL.
--- NOTE | 2023-01-15 19:09 | NUR ---
REPORT GIVEN TO RESEARCH PROFESSOR OF BIOSTATISTICS FOR CONTINUITY OF CARE. REMAINS STABLE.
--- NOTE | 2023-01-15 19:20 | NUR ---
RECEIVED REPORT FROM DAY SHIFT RN FOR CONTINUITY OF CARE. PT IS CURRENTLY RESTING IN BED. ON RA NOT IN ANY DISTRESS. PT HAS IV ON RIGHT HAND 22 GAUGE SALINE LOCK.BED AT THE LOWEST POSITION. HEAD OF THE BED RAISED. WILL CONTINUE TO MONITOR THE PT.
[2023-01-15 20:00] VITALS: BP 115/78
--- NOTE | 2023-01-15 20:06 | NUR ---
SCHEDULE MEDICATION GIVEN. NO ADVERSE REACTION NOTED. PT COMPLAINED OF HIP PAIN. NORCO WAS GIVEN. PT ALSO WANTED SOME ICE WATER AND WAS PROVIDED. NO OTHER COMPLAINS. WILL CONTINUE TO MONITOR THE PT.
--- NOTE | 2023-01-16 00:25 | NUR ---
OBSERVED PT. PT IS SLEEPING COMFORTABLY IN BED. NOT IN ANY DISTRESS. BREATHING EVEN AND UNLABORED. WILL CONTINUE TO MONITOR THE PT.
[2023-01-16] MEDS: MORPHINE SULFATE 4 MG/ML SYR IVP PRN ×5 (03:02→22:47)
[2023-01-16] MEDS: LORazepam 1 MG TAB PO PRN (03:02)
[2023-01-16 04:00] VITALS: BP 144/91
[2023-01-16] MEDS: NAFCILLIN 2,000 MG in DEXTROSE 5% 100 ML IV SCH ×5 (04:05→20:45)
--- NOTE | 2023-01-16 04:05 | NUR ---
SCHEDULE ABX GIVEN. NO ADVERSE REACTION NOTED. PT RESTING IN BED COMFORTABLY. NOT IN ANY DISTRESS AT THIS TIME.
[2023-01-16] MEDS: HYDROcodone/APAP 10/325 MG 1 TAB TAB PO PRN ×3 (05:45→21:01)
--- NOTE | 2023-01-16 07:04 | NUR ---
ENDORSED PT TO DAY SHIFT RN FOR CONTINUITY OF CARE. PT IS STABLE.
[2023-01-16] MEDS: BLOOD GLUCOSE MONITORING 1 DEV DEV FS SCH ×4 (07:16→20:56)
--- NOTE | 2023-01-16 07:29 | NUR ---
GOT REPORT FROM THE NIGHT NURSE PT IS SLEEPING , NO SOB
[2023-01-16] MEDS: FUROSEMIDE 20 MG TAB PO SCH (08:32)
[2023-01-16] MEDS: DOCUSATE SODIUM 100 MG GELCAP PO SCH (08:32)
[2023-01-16] MEDS: SODIUM CHLORIDE 1 GM TAB PO SCH ×3 (08:32→16:39)
[2023-01-16] MEDS: lisinopriL 5 MG TAB PO SCH (08:32)
[2023-01-16] MEDS: METOPROLOL SUCCINATE 50 MG TABER PO SCH (08:32)
[2023-01-16 11:14] LABS: ANION GAP 12.9 (8-16); CARBON DIOXIDE 25.6 mmol/L (21-32); CREATININE 0.6 mg/dL (0.6-1.3); POTASSIUM 3.5 mmol/L (3.5-5.1)
[2023-01-16 12:00] VITALS: BP 144/91
[2023-01-16 20:00] VITALS: BP 132/93
--- NOTE | 2023-01-16 20:45 | NUR ---
ALL SCHEDULED DUE MEDICATIONS ADMINISTERED.
--- NOTE | 2023-01-16 20:46 | NUR ---
PATIENT WELL RESTED. NO DISTRESS NOTED. IV SITE TO RIGHT FOREARM SALINE LOCK. CALL IN REACH
[2023-01-17] MEDS: NAFCILLIN 2,000 MG in DEXTROSE 5% 100 ML IV SCH ×6 (00:24→20:41)
[2023-01-17] MEDS: MORPHINE SULFATE 4 MG/ML SYR IVP PRN ×3 (03:02→20:18)
[2023-01-17 04:00] VITALS: BP 137/87
[2023-01-17] MEDS: HYDROcodone/APAP 10/325 MG 1 TAB TAB PO PRN (06:01)
[2023-01-17] MEDS: BLOOD GLUCOSE MONITORING 1 DEV DEV FS SCH ×4 (06:41→20:47)
--- NOTE | 2023-01-17 07:25 | NUR ---
ENDORSED PATIENT TO NURSE JAVAD FOR CONTINUITY OF CARE.
--- NOTE | 2023-01-17 07:27 | NUR ---
GOT REPORT FROM THE NIGHT NURSE, PT ASKING FOR PAIN MED.[id number]
[2023-01-17 08:00] VITALS: BP 154/87
[2023-01-17] MEDS: METOPROLOL SUCCINATE 50 MG TABER PO SCH (08:45)
[2023-01-17] MEDS: DOCUSATE SODIUM 100 MG GELCAP PO SCH (08:45)
[2023-01-17] MEDS: SODIUM CHLORIDE 1 GM TAB PO SCH ×3 (08:45→17:13)
[2023-01-17] MEDS: FUROSEMIDE 20 MG TAB PO SCH (08:46)
[2023-01-17] MEDS: lisinopriL 5 MG TAB PO SCH (08:46)
[2023-01-17] MEDS: LORazepam 1 MG TAB PO PRN (08:57)
[2023-01-17 14:23] LABS: PROTHROMBIN TIME 11.5 secs (10.8-13.4)
--- NOTE | 2023-01-17 15:01 | NUR ---
01/17/23 RD FOLLOW UP COMPLETED PLEASE REFER TO NUTRITION ASSESSMENT UNDER CARE ACTIVITY FOR ESTIMATED NUTRITIONAL NEEDS. 1. CONTINUE ON [facility] DIET TOLERATED 2. MONITOR GI, PO INTAKE, AND NUTRITION RELATED LAB VALUES. 3. RD TO FOLLOW-UP 3-5 DAYS, MODERATE RISK CHEL REEVES RD
[2023-01-17] MEDS ORDERED: COMMUNICATION ORDER MC PRN (15:10)
[2023-01-17] MEDS ORDERED: LIDOCAINE 2% 1000 MG/50 ML VIAL INJ SCH (15:25)
[2023-01-17] MEDS ORDERED: HYDROmorphone PFS 2 MG/ML SYR IVP PRN (15:25)
[2023-01-17 16:35] LABS: BASOPHILS # (AUTO) 0.1 K/uL (0.00-0.22); BASOPHILS % (AUTO) 0.3 % (0.0-2.0); EOSINOPHILS % (AUTO) 0.3 % (0.0-4.0); HEMATOCRIT 29.4 % (36-48); HEMOGLOBIN 9.7 g/dL (12.0-16.0); LYMPHOCYTES # (AUTO) 1.2 K/uL (2.5-16.5); LYMPHOCYTES % (AUTO) 6.8 % (20.5-51.1); MEAN CORPUSCULAR HEMOGLOBIN 29 pg (27-31); MEAN CORPUSCULAR HGB CONC 33 g/dL (33-37); MEAN CORPUSCULAR VOLUME 86.7 fL (80-94); MONOCYTES # (AUTO) 1.1 K/uL (0.8-1.0); MONOCYTES % (AUTO) 6.3 % (1.7-9.3); NEUTROPHILS # (AUTO) 15.1 K/uL (1.8-7.7); NEUTROPHILS % (AUTO) 86.3 % (42.2-75.2); PLATELET COUNT (AUTO) 830 K/uL (140-450); RED BLOOD CELL COUNT(AUTO) 3.39 MIL/uL (4.20-5.40); RED CELL DISTRIBUTION WIDTH 17.6 % (11.6-13.7); WHITE BLOOD COUNT (AUTO) 17.5 K/uL (4.8-10.8)
--- NOTE | 2023-01-17 18:31 | NUR ---
DR. BENITO CALLED FOR UPDATE ON IR US-GUIDED LEFT HIP ASPIRATION. PER DR. BENITO, ADDED CELL COUNT FOR FLUID LABS.
--- NOTE | 2023-01-17 19:17 | NUR ---
gave report to the night nurse, pt stable but asking for pain med so text send for the dr to approve the hydromorphone that works better.[email or web address] [id number]
--- NOTE | 2023-01-17 19:30 | NUR ---
RECEIVED PT ON BED, AWAKE AND ALERT. ABLE TO VERBALIZED NEEDS. IV SITE IS ON RIGHT HAND 22G. IV FLUID INFUSING FOR KVO.
[2023-01-17 20:00] VITALS: BP 128/84
--- NOTE | 2023-01-17 20:18 | NUR ---
PT COMPLAINTS OF SEVERE PAIN ON LEFT HIP 05/24, PAIN MEDICATION MORPHINE ADMINISTERED ORDER. PT STATED DILAUDID THAT SHE RECEIVED THIS PM ABLE TO CONTROL PAIN BETTER. MESSAGE TO DR. MERINO, WAITING FOR REPLY.
--- NOTE | 2023-01-17 20:47 | NUR ---
BLOOD SUGAR CHECKED = 130, NO SLIDING SCALE COVERAGE, NO INSULIN NEEDED.
--- NOTE | 2023-01-17 20:48 | NUR ---
REASSESSMENT OF PAIN, PT VERBALIZED PAIN IS DIMINISHED TO 6/10.
[2023-01-17] MEDS: HYDROmorphone 1 MG/ML AMP IVP PRN (23:58)
--- NOTE | 2023-01-17 23:58 | NUR ---
PT COMPLAINTS OF LEFT HIP PAIN 10/10, PAIN MEDICATION DILAUDID ADMINISTERED ORDER.
--- NOTE | 2023-01-18 00:13 | NUR ---
REASSESSMENT OF PAIN, DILAUDID IS EFFECTIVE, PT VERBALIZED OF NO PAIN.
[2023-01-18] MEDS: NAFCILLIN 2,000 MG in DEXTROSE 5% 100 ML IV SCH ×5 (00:49→16:47)
[2023-01-18 04:00] VITALS: BP 127/84
[2023-01-18] MEDS: HYDROmorphone 1 MG/ML AMP IVP PRN ×3 (04:14→13:51)
--- NOTE | 2023-01-18 04:14 | NUR ---
PT COMPLAINTS OF LEFT HIP PAIN 10/10, DILAUDID 1MG ADMINISTERED ORDER.
--- NOTE | 2023-01-18 04:30 | NUR ---
PAIN REASSESSMENT. PT STATED RELIEF OF PAIN, PAIN 0/10
--- NOTE | 2023-01-18 06:30 | NUR ---
BLOOD SUGAR CHECKED = 107. NO SLIDING SCALE COVERAGE, NO HUMALOG INSULIN NEEDED.
[2023-01-18] MEDS: BLOOD GLUCOSE MONITORING 1 DEV DEV FS SCH ×3 (06:42→16:56)
[2023-01-18 06:57] LABS: CARBON DIOXIDE 27.9 mmol/L (21-32); CREATININE 0.5 mg/dL (0.6-1.3)
[2023-01-18 06:59] LABS: POTASSIUM 2.9 mmol/L (3.5-5.1)
--- NOTE | 2023-01-18 07:00 | NUR ---
RECEIVED REPORT FROM LAB FOR CRITICAL POTASSIUM VALUE OF 2.9, BLOOD WITHDRAWN THIS MORNING 0540. NOT REPORTED TO MD DUE TO THERE IS OUTSTANDING ORDER FOR POTASSIUM. ENDORSED TO DAY SHIFT NURSE PABLO. PT IS ON STABLE CONDITION.
--- NOTE | 2023-01-18 07:30 | NUR ---
RECEIVED REPORT FROM CERTIFIED RESIDENTIAL MEDICATION AIDE NURSE, POC DISCUSSED. PT CURRENTLY RESTING WITH CHEST RISING AND FALLING. NO ACUTE S/S OF DISTRESS. ALL SAFETY MEASURES IN PLACE. CALL LIGHT WITHIN REACH.
[2023-01-18] MEDS: SODIUM CHLORIDE 1 GM TAB PO SCH ×3 (08:25→16:48)
[2023-01-18] MEDS: METOPROLOL SUCCINATE 50 MG TABER PO SCH (08:26)
[2023-01-18] MEDS: lisinopriL 5 MG TAB PO SCH (08:26)
[2023-01-18] MEDS: FUROSEMIDE 20 MG TAB PO SCH (08:26)
[2023-01-18] MEDS: DOCUSATE SODIUM 100 MG GELCAP PO SCH (08:27)
[2023-01-18] MEDS ORDERED: CRUSHER, PILL MC ONE (08:32)
[2023-01-18] MEDS: MORPHINE SULFATE 4 MG/ML SYR IVP PRN (11:33)
[2023-01-18 12:00] VITALS: BP 113/75
[2023-01-18] MEDS ORDERED: POTASSIUM CHLORIDE 10 MEQ TABER PO SCH (12:10)
--- NOTE | 2023-01-18 15:28 | NUR ---
PER , PT WILL NOT BE DISCHARGED UNTIL RESULTS ARE BACK FROM FLUID REMOVED FROM HIP TO VERIFY IF SHE HAS AN INFECTION IN BLOOD. ALSO, TOLD PT SHE CAN SHOWER MAYBE TOMORROW IF SHE IS NO LONGER DIZZY. IF DIZZY STILL, PT CAN'T SHOWER SHE IS UNSTABLE.
[2023-01-18] MEDS ORDERED: oxyCODONE/APAP 5/325 MG 1 TAB TAB PO PRN (16:10)
[2023-01-18] MEDS ORDERED: HYDROmorphone 1 MG/ML AMP IVP PRN (16:10)
--- NOTE | 2023-01-18 19:35 | NUR ---
PATIENT CALLED NURSE AT BEDSIDE, STATED SHE WANTED TO GO HOME TONIGHT AND SIGN AMA. INFORMED FISH AGENT, AND CYCLE COUNTER. EXPLAINED RISK OF SIGNING AMA. PT VERBALIZED UNDERSTANDING AND SIGNED THE FORM.
== END 2023-01-18 19:42 | disposition left against medical advice (07) | DRG 720 ==
LOC: MED 18:08 → MTU 21:24
PROVIDERS: ADMIT Student in an Organized Health Care Education/Training Program; ATTEND Student in an Organized Health Care Education/Training Program
DX: A41.9 Sepsis, unspecified organism (principal); M00.052 Staphylococcal arthritis, left hip; E22.2 Syndrome of inappropriate secretion of antidiuretic hormone; I38 Endocarditis, valve unspecified; I50.9 Heart failure, unspecified; I11.0 Hypertensive heart disease with heart failure; B95.61 Methicillin susceptible Staphylococcus aureus infection as the cause of diseases classified elsewhere; M16.12 Unilateral primary osteoarthritis, left hip; K21.9 Gastro-esophageal reflux disease without esophagitis; E86.1 Hypovolemia; Z20.822 Contact with and (suspected) exposure to COVID-19; Z53.29 Procedure and treatment not carried out because of patient's decision for other reasons; F15.10 Other stimulant abuse, uncomplicated; Z59.00 Homelessness unspecified
CPT/HCPCS: 36415; 72170; 72192; 73501; 80048; 80053; 80305; 81003; 82533; 82945; 82948; 83605; 83690; 83735; 83880; 83935; 84133; 84157; 84300; 84439; 84443; 85025; 85610; 85651; 85730; 86140; 87040; 87070; 87075; 87081; 87186; 87205; 89051; 96361; 96365; 96375; 96376; 97110; 97112; 97116; 97530; 99285; J1170; J1644; J1815; J1885; J2001; J2270; J2405; J3370; J3475; J3480; J3490; J7030; J7060

== ENCOUNTER 2023-11-25 08:47 | Emergency (ER) | payer OTHER ==
[~2023-11-25] VITALS: Ht 154.9 cm; Wt 52.2 kg
[2023-11-25 09:04] VITALS: BP 134/104; PULSE 104; RESP 16; TEMP 97.3; O2SAT 99
[2023-11-25 10:11] LABS: BASOPHILS % (AUTO) 0.5 % (0.0-2.0); EOSINOPHILS # (AUTO) 0.4 K/uL (0-0.4); EOSINOPHILS % (AUTO) 5.5 % (0.0-4.0); HEMATOCRIT 38.6 % (36-48); HEMOGLOBIN 13.2 g/dL (12.0-16.0); LYMPHOCYTES % (AUTO) 44.6 % (20.5-51.1); MEAN CORPUSCULAR HEMOGLOBIN 29 pg (27-31); MEAN CORPUSCULAR HGB CONC 34 g/dL (33-37); MEAN CORPUSCULAR VOLUME 84.2 fL (80-94); MONOCYTES # (AUTO) 0.4 K/uL (0.8-1.0); MONOCYTES % (AUTO) 5.8 % (1.7-9.3); NEUTROPHILS % (AUTO) 43.6 % (42.2-75.2); PLATELET COUNT (AUTO) 404 K/uL (140-450); RED BLOOD CELL COUNT(AUTO) 4.58 MIL/uL (4.20-5.40); RED CELL DISTRIBUTION WIDTH 14.1 % (11.6-13.7); WHITE BLOOD COUNT (AUTO) 6.8 K/uL (4.8-10.8)
[2023-11-25 10:15] VITALS: BP 140/97; PULSE 92; RESP 15; TEMP 98.3; O2SAT 97
[2023-11-25] MEDS: ONDANSETRON 4 MG/2 ML VIAL IVP ONE (10:18)
[2023-11-25 10:24] LABS: ANION GAP 20.2 (8-16); CARBON DIOXIDE 22.4 mmol/L (21-32); CREATININE 0.8 mg/dL (0.6-1.3); POTASSIUM 3.6 mmol/L (3.5-5.1)
[2023-11-25] MEDS: MORPHINE SULFATE 4 MG/ML SYR IVP ONE (10:24)
== END 2023-11-25 11:26 | disposition left against medical advice (07) ==
LOC: MED 08:47
DX: M13.852 Other specified arthritis, left hip (principal); I11.9 Hypertensive heart disease without heart failure; K21.9 Gastro-esophageal reflux disease without esophagitis; Z79.899 Other long term (current) drug therapy
CPT/HCPCS: 36415; 80048; 81002; 81025; 83605; 84703; 85025; 85651; 86140; 87040; 96374; 96375; 99284; J2270; J2405